=== PATIENT | female | born 1950 | race Caucasian/White ===

== ENCOUNTER 2022-04-17 14:40 | Inpatient (IN) | payer MEDICARE ==
[~2022-04-17 14:40] MED LIST: HEPARIN SOD,PORK IN 0.45% NACL 25,000 UNIT in 0.45% NACL 1 250ML.BAG IV SCH; HEPARIN SODIUM 1,000 UN/ML (10ML VL) IV ONE; HEPARIN SODIUM 1,000 UN/ML (10ML VL) IV PRN
[2022-04-17] MEDS ORDERED: DILTIAZEM 125 MG/25 ML VIAL IV ONE (16:35)
[2022-04-17] MEDS ORDERED: HEPARIN SOD,PORK IN 0.45% NACL PMX 25,000 UNIT/500 ML BAG IV ONE (16:35)
[2022-04-17] MEDS ORDERED: HEPARIN SODIUM 1,000 UN/ML (10ML VL) ONE (16:35)
[2022-04-17] MEDS ORDERED: DILTIAZEM DRIP BOLUS FROM BAG 1 MG SOLN IV ONE (16:35)
[2022-04-17] MEDS ORDERED: SODIUM CHLORIDE 0.9% 100 ML BAG IV ONE (16:35)
[2022-04-17 21:29] LABS: Basophils % (A) 0 %; Eosinophils # (A) 0.1 k/uL (0-0.7); Eosinophils % (A) 1 %; HCT 40.1 % (34.0-46.0); HGB 13.2 gm/dL (11.4-16.0); Lymphocytes # (A) 1.7 k/uL (1.0-4.8); Lymphocytes % (A) 17 %; MCH 30.3 pg (25.0-35.0); MCHC 32.9 g/dL (31.0-37.0); MCV 91.9 fL (80.0-100.0); Mean Platelet Volume 7.7; Monocytes # (A) 0.6 k/uL (0-1.0); Monocytes % (A) 6 %; Neutrophils # (A) 7.3 k/uL (1.3-7.7); Neutrophils % (A) 74 %; Platelet Count 243 k/uL (150-450); RBC 4.36 m/uL (3.80-5.40); WBC 9.8 k/uL (3.8-10.6)
[2022-04-17 21:34] LABS: Partial Thromboplastin Time 22.4 sec (22.0-30.0); Prothrombin Time 11.1 sec (9.0-12.0)
[2022-04-17 21:49] LABS: Albumin 4.1 g/dL (3.5-5.0); Calcium 9.3 mg/dL (8.4-10.2); Potassium 4.5 mmol/L (3.5-5.1); Total Bilirubin 1.4 mg/dL (0.2-1.3); Total Protein 7.4 g/dL (6.3-8.2)
[2022-04-18] MEDS ORDERED: DOCUSATE 100 MG CAP PO PRN (00:25)
[2022-04-18] MEDS ORDERED: ACETAMINOPHEN TAB 325 MG TAB PO PRN (00:25)
[2022-04-18] MEDS ORDERED: ALPRAZolam 0.25 MG TAB PO PRN (00:25)
[2022-04-18] MEDS ORDERED: CALCIUM CARBONATE 500 MG CHEWABLE PO PRN (00:25)
[2022-04-18] MEDS ORDERED: NALOXONE 0.4 MG/ML 1 ML VIAL IV PRN (00:25)
[2022-04-18] MEDS ORDERED: MELATONIN 3 MG TABLET PO PRN (00:25)
[2022-04-18] MEDS ORDERED: ONDANSETRON 4 MG/2 ML VIAL IVP PRN (00:25)
--- NOTE | 2022-04-18 00:39 | P.HPIM ---
History of Present Illness H&P Date: 04/17/22 Chief Complaint: palpitation , exhausted 71 year old female with hypothyroid , hypertension , obesity she is coming in today due to worsening fatigue, SOB and dizziness, she has been experiencing palpitation for months now , she reports no cardiac history and had a left heart cath done few years ago that was reported to be normal she does experience episodes of palpitations, weakness, and SOB with activity. which has been getting worse over the past few days. she denies any CP, nausea or vomiting, denies any recent travel or hspital stay ,denies any history of blood clots. she drinks one cup of coffee in the morning , but she admits to being under a lot of stress due to life in general and sick . she also has been dealing with depressed mood , and feeling exhausted all the time. workup in the ED showed afib with RVR. , she was started on cardizem drip and heparin drip , admitted for cardio eval Review of Systems Pertinent positives as noted in HPI. All other systems were reviewed and are negative Past Medical History Past Medical History: Hypertension, Osteoarthritis (OA), Pneumonia, Renal Disease, Sleep Apnea/CPAP/BIPAP Additional Past Medical History / Comment(s): RENAL ISSUSES A CHILD History of Any Multi-Drug Resistant Organisms: None Reported Past Surgical History: Heart Catheterization Past Anesthesia/Blood Transfusion Reactions: No Reported Reaction Past Psychological History: Panic Disorder Additional Psychological History / Comment(s): HAVE NOT HAD ONE IN AWHILE Smoking Status: Former smoker - Past Family History Mother Family Medical History: AICD/Pacemaker, Dementia Additional Family Medical History / Comment(s): MOTHER STILL ALIVE Father Additional Family Medical History / Comment(s): WITH HEART ATTACK Medications and Allergies Home Medications Medication Instructions Recorded Confirmed Type Aspirin EC [Ecotrin Low Dose] 81 mg PO HS 04/17/22 04/17/22 History Levothyroxine Sodium [Synthroid] 75 mcg PO DAILY 04/17/22 04/17/22 History Spironolactone [Aldactone] 25 mg PO DAILY 04/17/22 04/17/22 History carvediloL 12.5 mg PO BID 04/17/22 04/17/22 History Allergies Allergy/AdvReac Type Severity Reaction Status Date / Time No Known Allergies Allergy Verified 04/17/22 22:10 Physical Exam Vitals: Vital Signs Temp Pulse Resp BP Pulse Ox 04/17/22 20:12 98.1 F 163 H 18 103/86 95 Intake and Output 04/17/22 04/17/22 04/18/22 14:59 22:59 06:59 Other: Weight 136 kg Constitutional: No acute distress, conversant, pleasant Eyes: Anicteric sclerae, moist conjunctiva, Pupils equal round reactive to light ENMT: NC/AT Oropharynx clear, no erythema, or exudates Neck: Supple, no masses, or JVD No carotid bruits No thyromegaly Lungs: Clear to auscultation Clear to percussion Normal respiratory effort, no accessory muscle use Cardiovascular: Heart irregular in rate and rhythm, No murmurs, gallops, or rubs No peripheral edema Abdominal: Soft Nontender, no guarding, rebound or rigidity Abdomen moving with respiration Normoactive bowel sounds No hepatomegaly, No splenomegaly No palpable mass No abdominal wall hernia noted Skin: Normal temperature, tone, texture, turgor No induration No subcutaneous nodules No rash, lesions No ulcers Extremities: No digital cyanosis No clubbing Pedal pulses intact and symmetrical Radial pulses intact and symmetrical No calf tenderness Psychiatric: Alert and oriented to person, place and time Appropriate affect fair judgement Neuro Muscles Strength 5/5 in all 4 extremities Sensation to light touch grossly present throughout Cranial nerves II-XII grossly intact No focal sensory deficits Lymphatics: no palpable cervical or supraclavicular , or inguinal lymph nodes Results CBC & Chem 7: 04/17/22 15:37 04/17/22 15:37 Labs: Abnormal Lab Results - Last 24 Hours (Table) 04/17/22 Range/Units 15:37 Sodium 136 L (137-145) mmol/L Carbon Dioxide 20 L (22-30) mmol/L BUN 18 H (7-17) mg/dL Glucose 103 H (74-99) mg/dL Total Bilirubin 1.4 H (0.2-1.3) mg/dL Thrombosis Risk Factor Assmnt - Choose All That Apply Each Factor Represents 1 point: Age 41-60 years Thrombosis Risk Factor Assessment Total Risk Factor Score: 1 Thrombosis Risk Factor Assessment Level: Low Risk Assessment and Plan Assessment: 71 year old female with hypothyroid and hypertension presented with worsening palpitations, exhaustion and exertional dyspnea , workup in the ED showed afib with RVR. , she was started on cardizem drip and heparin drip , admitted for cardio eval afib with RVR new onset check echo cardiogram check TSH check electrolytes trend trops cardiology consult cardizem bolus and drip heparin drip equipment monitor phototypesetting monitor vital signs hypertension resume spironolactone and coreg hypothyroid resume levothyroxin full code DVT PPX on heparin drip for afib
[2022-04-18] MEDS: DILTIAZEM 125 MG in SODIUM CHLORIDE 0.9% 100 ML IV SCH ×2 (03:01→11:32)
[2022-04-18] MEDS: LEVOTHYROXINE 75 MCG TAB PO SCH (07:29)
[2022-04-18 09:58] LABS: Basophils % (A) 0 %; Eosinophils # (A) 0.1 k/uL (0-0.7); Eosinophils % (A) 1 %; HCT 40.3 % (34.0-46.0); HGB 13.1 gm/dL (11.4-16.0); Hypochromasia Slight; Lymphocytes # (A) 1.5 k/uL (1.0-4.8); Lymphocytes % (A) 18 %; MCH 30.5 pg (25.0-35.0); MCHC 32.5 g/dL (31.0-37.0); Monocytes # (A) 0.4 k/uL (0-1.0); Monocytes % (A) 5 %; Neutrophils % (A) 74 %; Platelet Count 250 k/uL (150-450); RBC 4.29 m/uL (3.80-5.40); WBC 8.1 k/uL (3.8-10.6)
[2022-04-18 10:23] LABS: INR 1.1 (<1.2); Partial Thromboplastin Time 33.6 sec (22.0-30.0); Prothrombin Time 11.5 sec (9.0-12.0)
--- NOTE | 2022-04-18 11:58 | P.PN ---
Subjective Progress Note Date: 04/18/22 Patient says that she's starting to feel better, heart rates are still between 100-130. Remains on diltiazem drip, heparin drip. Gen: awake, alert HEENT: normocephalic, atraumatic, good hearing acuity, moist mucous membranes Resp: good air exchange, breathing comfortably with no accessory muscle use CVS: good distal perfusion x 4, GI: soft, NTTP, ND : no SPT, no CVAT, biswas catheter not present MSK: no pitting edema, no clubbing Neuro: non-focal, moving all extremities Psych: cooperative, euthymic mood Assessment/plan: Paroxysmal Afib with RVR -Admit to inpatient, telemetry -check echo cardiogram -TSH is normal -trend trops, neg -cardiology consult -cardizem bolus and drip -heparin drip Hypertension -resume spironolactone and coreg Hypothyroid -resume levothyroxine Full code DVT PPX on heparin drip for afib Objective - Vital Signs Vital signs: Vital Signs Temp 97.8 F 04/18/22 00:00 Pulse 128 H 04/18/22 11:28 Resp 18 04/18/22 11:28 BP 101/75 04/18/22 11:28 Pulse Ox 95 04/18/22 11:28 FiO2 Intake & Output 04/17/22 04/18/22 04/18/22 18:59 06:59 18:59 Weight 136 kg Other: Voiding Method Toilet - Labs CBC & Chem 7: 04/18/22 09:01 04/17/22 15:37 Labs: Abnormal Lab Results - Last 24 Hours (Table) 04/17/22 04/18/22 Range/Units 15:37 09:01 APTT 33.6 H (22.0-30.0) sec Sodium 136 L (137-145) mmol/L Carbon Dioxide 20 L (22-30) mmol/L BUN 18 H (7-17) mg/dL Glucose 103 H (74-99) mg/dL Total Bilirubin 1.4 H (0.2-1.3) mg/dL
[2022-04-18] MEDS: SODIUM CHLORIDE 0.9% 1,000 ML IV SCH ×3 (12:18→17:53)
[2022-04-18] MEDS: SPIRONOLACTONE 25 MG TAB PO SCH (12:18)
[2022-04-18] MEDS: carvediloL 12.5 MG TAB PO SCH ×2 (12:18→21:07)
--- NOTE | 2022-04-18 13:15 | CA ---
Transthoracic Echo Report Name: Анна Acuna Age: 71 Gender: F : 1950 Exam Date: 04/18/2022 08:03 Exam Location: [facility] Ht (in): 64 Wt (lb): 299 Ordering Physician: Ayana Sorto MD Attending/Referring Phys: [id number], Macario Brim Stretcher Laine Bill RDCS Procedure CPT: Indications: afib new Cardiac Hx: Technical Quality: Technically difficult study Contrast 1: Lumason Total Dose (mL): 4 Contrast 2: Total Dose (mL): MEASUREMENTS (Male / Female) Normal Values 2D ECHO LV Diastolic Diameter PLAX 4.0 cm 4.2 - 5.9 / 3.9 - 5.3 cm LV Systolic Diameter PLAX 3.2 cm IVS Diastolic Thickness 1.4 cm 0.6 - 1.0 / 0.6 - 0.9 cm LVPW Diastolic Thickness 1.4 cm 0.6 - 1.0 / 0.6 - 0.9 cm LV Relative Wall Thickness 0.7 RV Internal Dim ED PLAX 2.5 cm LA Volume 69.3 cm??? 18 - 58 / 22 - 52 cm??? M-MODE Aortic Root Diameter MM 3.3 cm LA Systolic Diameter MM 3.7 cm LA Ao Ratio MM 1.1 AV Cusp Separation MM 2.0 cm DOPPLER AV Peak Velocity 133.1 cm/s AV Peak Gradient 7.1 mmHg LVOT Peak Velocity 85.5 cm/s LVOT Peak Gradient 2.9 mmHg TR Peak Velocity 298.3 cm/s TR Peak Gradient 35.6 mmHg Right Ventricular Systolic Press 38.5 mmHg FINDINGS Left Ventricle Moderately increased left ventricular wall thickness. Could not estimate EF due to fast HR. Right Ventricle Normal right ventricular size and function. Mild pulmonary hypertension. Right Atrium Mild right atrial dilatation. Left Atrium Moderately increased left atrial volume. Mitral Valve Mild mitral annular calcification. Moderate mitral regurgitation. Aortic Valve No aortic valve stenosis or regurgitation. Tricuspid Valve Moderate tricuspid regurgitation. Pulmonic Valve Trace pulmonic regurgitation. Pericardium No pericardial effusion. Aorta Normal size aortic root and proximal ascending aorta. CONCLUSIONS Technically a poor quality study and also difficult body habitus. Echo contrast was utilized. Ejection fraction is in the 45% range with mild mitral annular calcification moderate mitral regurgitation aortic valve sclerosis. No pericardial effusion. Previewed by: Dr. Karl Green MD (Electronically Signed) Final Date: 18 April 2022 13:14
[2022-04-18] MEDS: APIXABAN 5 MG TAB PO SCH ×2 (15:27→21:07)
--- NOTE | 2022-04-18 20:38 | CONS ---
CONSULTATION CHIEF COMPLAINT: Atrial fibrillation. HISTORY OF PRESENT ILLNESS: Анна is a 71-year-old lady with history of hypertension and hypothyroidism, who presented to hospital complaining of fatigue and tiredness of several months' duration and has been having intermittent episodes of palpitations for the last several weeks. She noticed that her heart rate and blood pressure were elevated, due to which she came to the emergency room and was found to be in atrial fibrillation with rapid ventricular rate, for which Cardiology had been consulted. She is currently on intravenous heparin, Cardizem, and resting comfortably. Heart rate is still poorly controlled. She is on 5 mg of Cardizem, I will increase it to 10; add digoxin; and continue the beta-andree that she is on. The patient's symptomatology is related to new-onset atrial fibrillation. She was seen by a electric sign wirer out of town over 10 years ago and underwent cardiac catheterization and was told she did not have significant obstructive CAD. I had a long conversation with the patient about her condition, short and long- term prognosis and treatment options. The patient's atrial fibrillation seems at least several weeks old. I am going to control her heart rate, adequately anticoagulate her, and cardiovert her at that time. If I am unable to control her heart rate with medical therapy, I might consider ROLAND cardioversion on this admission. We will start her on Eliquis or Xarelto. Continue intravenous Cardizem and beta andree. Once we have a good control of heart rate, we will switch her to oral Cardizem. I will obtain a 2D echo to evaluate her LV function. PAST MEDICAL HISTORY: Significant for hypertension and hypothyroidism. CURRENT MEDICATIONS: Include: 1. Carvedilol 12.5 b.i.d. 2. Aldactone 25 daily. 3. Synthroid. 4. Aspirin. ALLERGIES: There are no known drug allergies. FAMILY HISTORY: Significant for cardiomyopathy and AICD in her mother and congestive heart failure in a sister. SOCIAL HISTORY: Negative for smoking, EtOH abuse or drug abuse. REVIEW OF SYSTEMS: CONSTITUTIONAL: Significant for fatigue and tiredness. CARDIAC: Significant for palpitations. RESPIRATORY: Negative. GI: Negative. GENITOURINARY: Negative. ALLERGY/IMMUNOLOGY: Negative. SKIN: Negative. MUSCULOSKELETAL: Significant for arthritis. PSYCHOSOCIAL: Negative. DERM: Negative. Rest of the system review is not relevant. PHYSICAL EXAMINATION: GENERAL: Comfortable at rest. VITAL SIGNS: Heart rate is around 110 to 120 beats per minute, blood pressure is 120/72, respiratory rate is 18, O2 saturation is 95% on room air. NECK: There is no jugular venous distention. Carotid upstroke is normal. There is no bruit. CHEST: Reveals good air entry bilaterally. HEART: Reveals first and second heart sounds. Irregular rhythm. No murmur. ABDOMEN: Soft and nontender. EXTREMITIES: Did not reveal any edema. Peripheral pulses are felt. LABORATORY DATA: Show a hemoglobin of 13.2, platelet count is 243. Troponin is normal. BNP is elevated at 2260 of unclear clinical significance. ASSESSMENT: 1. Persistent atrial fibrillation with poorly controlled ventricular rate. 2. Hypertension. 3. Elevated BNP. PLAN: I will control the heart rate, anticoagulate her, check an echocardiogram, and adjust her therapies. Hopefully, will be discharged home tomorrow. While the BNP is elevated, the patient is not in congestive heart failure. MMODL / IJN: [id number] /
[2022-04-18] MEDS: ASPIRIN 81 MG PO SCH (21:07)
[2022-04-19] MEDS: DILTIAZEM 125 MG in SODIUM CHLORIDE 0.9% 100 ML IV SCH ×2 (00:27→15:00)
[2022-04-19] MEDS: LEVOTHYROXINE 75 MCG TAB PO SCH (06:46)
[2022-04-19 07:23] LABS: Basophils % (A) 0 %; Eosinophils # (A) 0.1 k/uL (0-0.7); Eosinophils % (A) 2 %; HCT 34.6 % (34.0-46.0); HGB 11.2 gm/dL (11.4-16.0); Hypochromasia Slight; Lymphocytes # (A) 1.3 k/uL (1.0-4.8); Lymphocytes % (A) 22 %; MCH 30.6 pg (25.0-35.0); MCHC 32.3 g/dL (31.0-37.0); MCV 94.7 fL (80.0-100.0); Mean Platelet Volume 7.4; Monocytes # (A) 0.3 k/uL (0-1.0); Monocytes % (A) 6 %; Neutrophils # (A) 4.1 k/uL (1.3-7.7); Neutrophils % (A) 69 %; Platelet Count 204 k/uL (150-450); RBC 3.65 m/uL (3.80-5.40); RDW 15.1 % (11.5-15.5); WBC 5.9 k/uL (3.8-10.6)
[2022-04-19 07:47] LABS: INR 1.1 (<1.2)
[2022-04-19 07:48] LABS: Prothrombin Time 11.6 sec (9.0-12.0)
[2022-04-19 07:49] LABS: Albumin 3.5 g/dL (3.5-5.0); Calcium 8.5 mg/dL (8.4-10.2); Magnesium 1.9 mg/dL (1.6-2.3); Potassium 3.7 mmol/L (3.5-5.1); Total Bilirubin 1.4 mg/dL (0.2-1.3); Total Protein 6.4 g/dL (6.3-8.2)
[2022-04-19] MEDS: SODIUM CHLORIDE 0.9% 1,000 ML IV SCH ×2 (08:57→16:32)
[2022-04-19] MEDS: DIGOXIN 250 MCG TAB PO SCH (09:04)
[2022-04-19] MEDS: SPIRONOLACTONE 25 MG TAB PO SCH (09:14)
[2022-04-19] MEDS: APIXABAN 5 MG TAB PO SCH ×2 (09:14→21:08)
[2022-04-19] MEDS: carvediloL 12.5 MG TAB PO SCH ×2 (09:14→21:07)
--- NOTE | 2022-04-19 11:25 | P.PN ---
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 Patient is admitted to the hospital secondary to new onset atrial fibrillation with RVR. Patient examined this morning at the bedside. Patient remains in atrial fibrillation with a very low heart rate between 80 and 120. Patient is on a Cardizem drip at 10 mg an hour. She denies any chest pain or pressure. She denies palpitations. She reports shortness of breath with ambulation. Echocardiogram completed revealing ejection fraction 45%. PHYSICAL EXAM: VITAL SIGNS: Reviewed. GENERAL: Well-developed in no acute distress. NECK: Supple. No JVD or thyromegaly LUNGS: Respirations even and unlabored. Lungs essentially clear to auscultation bilaterally. HEART: Irregular rate and rhythm. S1 and S2 heard. EXTREMITIES: Normal range of motion. No clubbing or cyanosis. Peripheral pulses intact. No lower extremity edema ASSESSMENT: New-onset persistent atrial fibrillation with RVR Hypertension Morbid obesity PLAN: Continue anticoagulation with Eliquis Continue current dose of carvedilol and Digoxin Decreased Cardizem drip to 5 mg an hour Add amiodarone 400 mg twice a day Nothing by mouth at midnight for POSSIBLE cardioversion tomorrow if patients rates are not controlled Continue telemetry monitoring Further recommendations pending patient's course Nurse practitioner note has been reviewed by physician. Signing provider agrees with the documented findings, assessment, and plan of care. Objective - Vital Signs Vital signs: Vital Signs Temp 97.6 F 04/19/22 08:59 Pulse 105 H 04/19/22 08:59 Resp 16 04/19/22 08:59 BP 116/84 04/19/22 08:59 Pulse Ox 99 04/19/22 08:59 FiO2 Intake & Output 04/18/22 04/19/22 04/19/22 18:59 06:59 18:59 Intake Total 118 125 204.5 Balance 118 125 204.5 Weight 136.9 kg Intake: Intake, IV Titration 125 86.5 Amount Diltiazem 125 mg In 125 86.5 Sodium Chloride 0.9% 100 ml @ 10 MG/HR 10 mls/hr IV .[id number] [facility] Rx#: [id number] Oral 118 118 Other: Voiding Method Toilet Toilet # Voids 0 1 - Labs CBC & Chem 7: 04/19/22 06:32 04/19/22 06:32 Labs: Abnormal Lab Results - Last 24 Hours (Table) 04/19/22 04/19/22 Range/Units 06:32 06:32 RBC 3.65 L (3.80-5.40) m/uL Hgb 11.2 L (11.4-16.0) gm/dL Glucose 111 H (74-99) mg/dL Total Bilirubin 1.4 H (0.2-1.3) mg/dL AST 37 H (14-36) U/L
--- NOTE | 2022-04-19 12:21 | P.PN ---
Subjective Progress Note Date: 04/19/22 Patient says that she's starting to feel better, heart rates are still between 100-130. Remains on diltiazem drip. Started on oral dilt, but still requiring small amount of IV gtt to keep HRs controlled. Gen: awake, alert HEENT: normocephalic, atraumatic, good hearing acuity, moist mucous membranes Resp: good air exchange, breathing comfortably with no accessory muscle use CVS: good distal perfusion x 4, GI: soft, NTTP, ND : no SPT, no CVAT, biswas catheter not present MSK: no pitting edema, no clubbing Neuro: non-focal, moving all extremities Psych: cooperative, euthymic mood Assessment/plan: Paroxysmal Afib with RVR -Admit to inpatient, telemetry -check echo cardiogram -TSH is normal -trend trops, neg -cardiology consult -cardizem bolus and drip -heparin drip --> eliquis -started on PO dilt Hypertension -resume spironolactone and coreg Hypothyroid -resume levothyroxine Full code DVT PPX on heparin drip for afib Objective - Vital Signs Vital signs: Vital Signs Temp 97.6 F 04/19/22 11:51 Pulse 132 H 04/19/22 11:51 Resp 17 04/19/22 11:51 BP 101/78 04/19/22 11:51 Pulse Ox 99 04/19/22 08:59 FiO2 Intake & Output 04/18/22 04/19/22 04/19/22 18:59 06:59 18:59 Intake Total 118 125 204.5 Balance 118 125 204.5 Weight 136.9 kg Intake: Intake, IV Titration 125 86.5 Amount Diltiazem 125 mg In 125 86.5 Sodium Chloride 0.9% 100 ml @ 10 MG/HR 10 mls/hr IV .[id number] [facility] Rx#: [id number] Oral 118 118 Other: Voiding Method Toilet Toilet # Voids 0 1 - Labs CBC & Chem 7: 04/19/22 06:32 04/19/22 06:32 Labs: Abnormal Lab Results - Last 24 Hours (Table) 04/19/22 04/19/22 Range/Units 06:32 06:32 RBC 3.65 L (3.80-5.40) m/uL Hgb 11.2 L (11.4-16.0) gm/dL Glucose 111 H (74-99) mg/dL Total Bilirubin 1.4 H (0.2-1.3) mg/dL AST 37 H (14-36) U/L
[2022-04-19] MEDS: AMIODARONE 200 MG TAB PO SCH ×2 (16:28→21:07)
[2022-04-19] MEDS: ASPIRIN 81 MG PO SCH (21:08)
--- NOTE | 2022-04-19 22:06 | XR ---
EXAMINATION TYPE: XR chest 2V DATE OF EXAM: 04/17/2022 COMPARISON: NONE HISTORY: Atrial fibrillation TECHNIQUE: Frontal and lateral views of the chest are obtained. FINDINGS: There is no focal air space opacity, pleural effusion, or pneumothorax seen. The cardiac silhouette size is within normal limits. There are overlying leads. Patient is rotated. The osseous structures are intact. IMPRESSION: No acute cardiopulmonary process.
[2022-04-20] MEDS: SODIUM CHLORIDE 0.9% 1,000 ML IV SCH ×3 (05:58→15:22)
[2022-04-20] MEDS: SPIRONOLACTONE 25 MG TAB PO SCH (09:31)
[2022-04-20] MEDS: APIXABAN 5 MG TAB PO SCH ×2 (09:31→20:33)
[2022-04-20] MEDS: LEVOTHYROXINE 75 MCG TAB PO SCH (09:31)
[2022-04-20] MEDS: DIGOXIN 250 MCG TAB PO SCH (09:31)
[2022-04-20] MEDS: carvediloL 12.5 MG TAB PO SCH ×2 (09:31→20:33)
[2022-04-20] MEDS: AMIODARONE 200 MG TAB PO SCH ×2 (09:31→20:33)
--- NOTE | 2022-04-20 11:51 | P.PN ---
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 Patient is admitted to the hospital secondary to new onset atrial fibrillation with RVR. Patient examined this morning at the bedside. Patient remains in atrial fibrillation with a heart rate between 80 and 120. Patient is on a Cardizem drip at 10 mg an hour. She denies any chest pain or pressure. She denies palpitations. She reports shortness of breath with ambulation. Echocardiogram completed revealing ejection fraction 45%. 04/20/2022 Patient examined this morning. She is sitting up in the chair. Patient denies chest pain or pressure. She reports mild shortness of breath with exertion. She denies any palpitations. Telemetry reveals atrial fibrillation with RVR. She remains on IV Cardizem. PHYSICAL EXAM: VITAL SIGNS: Reviewed. GENERAL: Well-developed in no acute distress. NECK: Supple. No JVD or thyromegaly LUNGS: Respirations even and unlabored. Lungs essentially clear to auscultation bilaterally. HEART: Irregular rate and rhythm. S1 and S2 heard. EXTREMITIES: Normal range of motion. No clubbing or cyanosis. Peripheral pulses intact. No lower extremity edema ASSESSMENT: New-onset persistent atrial fibrillation with RVR Hypertension Morbid obesity PLAN: Continue anticoagulation with Eliquis Continue current dose of carvedilol, digoxin, and amiodarone Continue telemetry monitoring Patient to undergo ROLAND/CV today with Dr. Casas Further recommendations pending patient's course Nurse practitioner note has been reviewed by physician. Signing provider agrees with the documented findings, assessment, and plan of care. Objective - Vital Signs Vital signs: Vital Signs Temp 97.4 F L 04/20/22 09:00 Pulse 115 H 04/20/22 09:00 Resp 20 04/20/22 09:00 BP 143/72 04/20/22 09:00 Pulse Ox 97 04/20/22 09:00 FiO2 Intake & Output 04/19/22 04/20/22 04/20/22 18:59 06:59 18:59 Intake Total 1090.0 140 10 Output Total 600 600 Balance 490.0 -460 10 Intake: IV 20 20 10 Invasive Line 2 20 20 10 Intake, IV Titration 116.0 Amount Diltiazem 125 mg In 116.0 Sodium Chloride 0.9% 100 ml @ 5 MG/HR 5 mls/hr IV .Q24H [facility] Rx#:[id number] Oral 954 120 Output: Urine 600 600 Other: Voiding Method Toilet # Voids 1 1 1 # Bowel Movements 1 - Labs CBC & Chem 7: 04/19/22 06:32 04/19/22 06:32
[2022-04-20] MEDS ORDERED: LIDOCAINE 2% INJ 20 MG/ML (2 ML VIAL) ONE (12:25)
[2022-04-20] MEDS ORDERED: PROPOFOL 10 MG/ML 20 ML VIAL IV ONE (12:25)
[2022-04-20] MEDS ORDERED: IV FLUID CONTINUATION 1,000 ML IV ONE ×2 (12:41)
--- NOTE | 2022-04-20 14:31 | P.PN ---
Subjective Progress Note Date: 04/20/22 Pt still requiring dilt gtt today despite addition of amiodarone and digoxin. Pt will be cardioverted tomorrow. Gen: awake, alert HEENT: normocephalic, atraumatic, good hearing acuity, moist mucous membranes Resp: good air exchange, breathing comfortably with no accessory muscle use CVS: good distal perfusion x 4, GI: soft, NTTP, ND : no SPT, no CVAT, biswas catheter not present MSK: no pitting edema, no clubbing Neuro: non-focal, moving all extremities Psych: cooperative, euthymic mood Assessment/plan: Paroxysmal Afib with RVR -Admit to inpatient, telemetry -check echo cardiogram -TSH is normal -trend trops, neg -cardiology consult -cardizem bolus and drip -heparin drip --> eliquis -started on PO dilt Hypertension -resume spironolactone and coreg Hypothyroid -resume levothyroxine Full code DVT PPX on heparin drip for afib Objective - Vital Signs Vital signs: Vital Signs Temp 97.0 F L 04/20/22 12:52 Pulse 51 L 04/20/22 13:22 Resp 16 04/20/22 13:22 BP 120/80 04/20/22 13:22 Pulse Ox 98 04/20/22 13:22 FiO2 Intake & Output 04/19/22 04/20/22 04/20/22 18:59 06:59 18:59 Intake Total 1090.0 140 411.25 Output Total 600 600 Balance 490.0 -460 411.25 Intake: IV 20 20 310 Invasive Line 2 20 20 10 Intake, IV Titration 116.0 101.25 Amount Diltiazem 125 mg In 116.0 101.25 Sodium Chloride 0.9% 100 ml @ 5 MG/HR 5 mls/hr IV .Q24H [facility] Rx#:[id number] Oral 954 120 Output: Urine 600 600 Other: Voiding Method Toilet # Voids 1 1 1 # Bowel Movements 1 - Labs CBC & Chem 7: 04/19/22 06:32 04/19/22 06:32
[2022-04-20] MEDS: ASPIRIN 81 MG PO SCH (20:34)
--- NOTE | 2022-04-21 05:55 | ECHOT ---
TRANSESOPHAGEAL ECHOCARDIOGRAM INDICATION: Atrial fibrillation, rule out intracardiac thrombus prior to cardioversion. PROCEDURE NOTE: After obtaining informed consent, transesophageal echocardiogram is performed in left lateral position using an Omniplane probe. Local and IV sedation were obtained by the sailor. The patient tolerated the procedure well without any obvious immediate complications. 2D color Doppler and spectral analysis had been performed. FINDINGS: 1. There is no intracardiac thrombus within the left atrial appendage, left atrium, right atrium, right ventricle. 2. Left ventricle has normal size and systolic function. 3. Left atrium appears mildly enlarged. 4. Interatrial septum, there is no evidence of [id number] shunt by color-flow Doppler or nwyck-pr-uppc shunt by agitated saline contrast study. 5. Aortic valve is a 3-leaflet valve. There is no evidence of aortic stenosis or regurgitation. 6. Mitral valve appears anatomically normal. There is nveokvbu-[id number]-[id number] central mitral regurgitation noted. Aorta appears normal. CONCLUSIONS: No intracardiac thrombus. Normal LV systolic function. Ccof-np-grlloboo left atrial enlargement, [id number] mitral regurgitation. PLAN: The patient will undergo cardioversion. MMODL / IJN: [id number] /
[2022-04-21] MEDS: LEVOTHYROXINE 75 MCG TAB PO SCH (06:07)
[2022-04-21] MEDS: SPIRONOLACTONE 25 MG TAB PO SCH (09:17)
[2022-04-21] MEDS: AMIODARONE 200 MG TAB PO SCH (09:17)
[2022-04-21] MEDS: APIXABAN 5 MG TAB PO SCH (09:17)
[2022-04-21] MEDS: carvediloL 12.5 MG TAB PO SCH (09:17)
[2022-04-21 09:53] VITALS: BP 135/67; PULSE 57; RESP 19; TEMP 97.9
--- NOTE | 2022-04-21 16:30 | P.DS ---
Providers Date of admission: 04/17/22 18:30 Expected date of discharge: 04/21/22 Attending physician: Irma Bush MD Consults: 04/18/22 00:28 Consult Physician Routine Consulting Provider: William Prieto Consult Reason/Comments: afib rvr Do you want consulting provider notified?: Yes, Notify in am Primary care physician: Bessy [facility] Course: Paroxysmal Afib with RVR Hypertension Hypothyroid 71-year-old woman with history of hypertension, hypothyroidism was admitted with palpitations, flushing. Patient was found to be in atrial fibrillation with RVR was started on diltiazem drip as well as heparin drip. Cardiology was consulted. Patient was started on digoxin, then subsequent amiodarone. Despite these 2 medications in addition to her home Coreg, patient still could not have her heart rates under control. Patient was therefore scheduled for ROLAND with cardioversion on 9 PM, which was successful in returning her to normal sinus rhythm. Patient was of swelling discharged home the following day after remaining in sinus rhythm off of the difficulty is drip with new medications for amiodarone. She was requested to follow-up with cardiology in 1-2 weeks regarding an echo that found that she had a slightly reduced ejection fraction of 45%. I spent 32 minutes coordinating this complex discharge, discharge date 04/21 Gen: awake, alert HEENT: normocephalic, atraumatic, good hearing acuity, moist mucous membranes Resp: good air exchange, breathing comfortably with no accessory muscle use CVS: good distal perfusion x 4, GI: soft, NTTP, ND : no SPT, no CVAT, biswas catheter not present MSK: no pitting edema, no clubbing Neuro: non-focal, moving all extremities Psych: cooperative, euthymic mood Patient Condition at Discharge: Good Plan - Discharge Summary Discharge Rx Participant: No New Discharge Prescriptions: New Apixaban [Eliquis] 5 mg PO BID #60 tab Amiodarone [Cordarone] 400 mg PO BID #180 tab Continue Spironolactone [Aldactone] 25 mg PO DAILY Levothyroxine Sodium [Synthroid] 75 mcg PO DAILY carvediloL 12.5 mg PO BID Aspirin EC [Ecotrin Low Dose] 81 mg PO HS Discharge Medication List Aspirin EC [Ecotrin Low Dose] 81 mg PO HS 04/17/22 [History] Levothyroxine Sodium [Synthroid] 75 mcg PO DAILY 04/17/22 [History] Spironolactone [Aldactone] 25 mg PO DAILY 04/17/22 [History] carvediloL 12.5 mg PO BID 04/17/22 [History] Apixaban [Eliquis] 5 mg PO BID #60 tab 04/18/22 [Rx] Amiodarone [Cordarone] 400 mg PO BID #180 tab 04/20/22 [Rx] Follow up Appointment(s)/Referral(s): Bessy Chowdhury MD [Primary Care Provider] - 1 Week Goyo Casas MD [STAFF PHYSICIAN] - 1 Week Patient Instructions/Handouts: A-fib (Atrial Fibrillation) (ED), Safe Use of Anticoagulants (DC) Activity/Diet/Wound Care/Special Instructions: Eliquis covered - copay $40.50 Discharge Disposition: HOME SELF-CARE
--- NOTE | 2022-04-23 08:40 | PCN ---
PROCEDURE NOTE STUDY PERFORMED: Cardioversion. FINDINGS: After making sure that the patient does not have any intracardiac thrombus with a transesophageal echo, the patient is adequately anticoagulated and is on amiodarone. She was electrically cardioverted with 150 joules of synchronized DC current and she converted to sinus rhythm following a single shock. She will be sent home on amiodarone and an anticoagulant. JW / DANYAN: [id number] /
== END 2022-04-21 11:40 | disposition home or self-care (01) | DRG 309 ==
LOC: EC 14:40 → UNDOADMIN 18:30 → 3SCARD 18:30
PROVIDERS: ADMIT Internal Medicine; ATTEND Internal Medicine
PROC: B246ZZ4 Ultrasonography of Right and Left Heart, Transesophageal (ICD-10-PCS; principal; 2022-04-20 13:05)
PROC: 5A2204Z Restoration of Cardiac Rhythm, Single (ICD-10-PCS; principal; 2022-04-20 13:05)
DX: I48.19 Other persistent atrial fibrillation (principal); Z68.43 Body mass index [BMI] 50.0-59.9, adult; E66.01 Morbid (severe) obesity due to excess calories; I10 Essential (primary) hypertension; E03.9 Hypothyroidism, unspecified; F32.A Depression, unspecified; G47.30 Sleep apnea, unspecified; M19.90 Unspecified osteoarthritis, unspecified site; N28.9 Disorder of kidney and ureter, unspecified; R79.89 Other specified abnormal findings of blood chemistry; Z79.82 Long term (current) use of aspirin; Z79.890 Hormone replacement therapy; Z79.899 Other long term (current) drug therapy; Z87.891 Personal history of nicotine dependence; Z82.49 Family history of ischemic heart disease and other diseases of the circulatory system
CPT/HCPCS: 71046; 80053; 82272; 83735; 83880; 84443; 84484; 85025; 85610; 85730; 92960; 93306; 93312; 93320; 93325; 96365; 96366; 99291

== ENCOUNTER → 2023-03-06 | Outpatient (CLI) | payer MEDICARE ==
--- NOTE | 2023-03-09 09:48 | MR ---
EXAMINATION TYPE: MR knee LT wo con DATE OF EXAM: 03/06/2023 COMPARISON: None HISTORY: Left knee pain TECHNIQUE: Multiplanar, multisequence imaging of the left knee is performed without IV contrast. The exam is limited by the patient's body habitus. FINDINGS: The osseous structures are intact and there is no bone contusion or fracture.. There is a small joint effusion in the small to moderate Crawford's cyst. There is horizontal tear of the posterior body of the medial meniscus. The lateral meniscus is intact . The cruciate and collateral ligaments are intact. There is mild osteoarthritic change of the medial and lateral compartments of the knee with mild thin ten of the articular cartilage and mild marginal hypertrophic spurring. There is no evidence of dege nerative change of the patellofemoral compartment in the patellar cartilage is of normal thickness an d is intact. IMPRESSION: 1. Tear of the medial meniscus as described above. 2. No ligamentous injury. 3 small joint effusion and small Crawford's cyst. 4. Mild osteoarthritic change of the medial lateral compartments.
== END | disposition home or self-care (01) ==
LOC: RADMRIMAIN 19:06
PROVIDERS: ATTEND Orthopaedic Surgery
DX: M17.12 Unilateral primary osteoarthritis, left knee (principal); S83.242A Other tear of medial meniscus, current injury, left knee, initial encounter; X58.XXXA Exposure to other specified factors, initial encounter

== ENCOUNTER → 2023-03-15 | Outpatient (CLI) | payer MEDICARE ==
[2023-03-15 21:07] LABS: Anion Gap 11.3 mmol/L (4.00-12.00); Carbon Dioxide 27.7 mmol/L (21.6-31.8); Potassium 4.5 mmol/L (3.5-5.5)
[2023-03-15 21:12] LABS: Basophils # (A) 0.03 X 10*3/uL (0.00-0.10); Basophils % (A) 0.4 %; Eosinophils # (A) 0.18 X 10*3/uL (0.04-0.35); Eosinophils % (A) 2.4 %; HCT 39.2 % (37.2-46.3); Lymphocytes # (A) 1.77 X 10*3/uL (0.90-5.00); Lymphocytes % (A) 23.9 %; MCH 31.1 pg (27.0-32.0); MCHC 33.2 d/dL (32.0-37.0); MCV 93.8 FL (80.0-97.0); Mean Platelet Volume 10.5 FL (9.5-12.2); Monocytes # (A) 0.69 X 10*3/uL (0.20-1.00); Monocytes % (A) 9.3 %; NRBC Per 100 WBC 0 X 10*3/uL (0.00-0.01); Neutrophils # (A) 4.73 X 10*3/uL (1.80-7.70); Neutrophils % (A) 63.7 %; Platelet Count 201 X 10*3/uL (140-440); RBC 4.18 X 10*6/uL (4.10-5.20); RDW 13.6 % (11.5-14.5); WBC 7.42 X 10*3/uL (4.50-10.00)
== END | disposition home or self-care (01) ==
LOC: LABWHC1 15:52
PROVIDERS: ATTEND Orthopaedic Surgery
DX: Z01.812 Encounter for preprocedural laboratory examination (principal); M23.92 Unspecified internal derangement of left knee
CPT/HCPCS: 36415; 80051; 85025

== ENCOUNTER 2023-04-04 10:37 | Day surgery (SDC) | payer MEDICARE ==
[2023-03-27 14:43] VITALS: BMI 51.5
--- NOTE | 2023-04-03 14:17 | HP ---
HISTORY AND PHYSICAL DATE OF SCHEDULED SURGERY: 04/04/2023. HISTORY OF PRESENT ILLNESS: Анна Acuna is a 72-year-old patient seen with progressive left knee pain. We discussed options for treatment. She elected to proceed with left knee arthroscopy. Consent was obtained. Cardiac clearance was provided by Dr. Casas. PAST MEDICAL HISTORY: Cardiovascular disease, hypertension, hypothyroidism. PAST SURGICAL HISTORY: Cataract surgery, laparoscopy. DAILY MEDICATIONS: 1. Aspirin. 2. Carvedilol. 3. Levothyroxine. 4. Spironolactone. ALLERGIES: None. SOCIAL HISTORY: She denies tobacco use. PHYSICAL EVALUATION OF LEFT KNEE: Range of motion is 0 to 110 degrees. Mild effusion. Tenderness to medial joint line. Positive medial Woodrow's. Medial crepitus. Ligaments stable. Hip rotation without pain. Distal neurovascular exam intact. RADIOGRAPHS: Radiographs of the left knee revealed moderate medial compartment osteoarthritis. MRI left knee revealed a medial meniscal tear. IMPRESSION: 1. Internal derangement of left knee medial meniscal tear. 2. Hypertension. 3. Hypothyroidism. 4. Cardiovascular disease. PLAN: Left knee arthroscopy with partial medial meniscectomy and debridement. MMODL / IJN: [id number] /
[~2023-04-04 10:37] MED LIST changes: -HEPARIN SOD,PORK IN 0.45% NACL 25,000 UNIT in 0.45% NACL 1 250ML.BAG IV SCH; -HEPARIN SODIUM 1,000 UN/ML (10ML VL) IV ONE; -HEPARIN SODIUM 1,000 UN/ML (10ML VL) IV PRN; +ceFAZolin 3 GM in SODIUM CHLORIDE 0.9% 100 ML IVPB PRN
[2023-04-04] MEDS ORDERED: LIDOCAINE 1% (10MG/ML) FOR IV START INTRADERMA PRN (10:48)
[2023-04-04] MEDS ORDERED: LACTATED RINGERS 1,000 ML IV SCH (10:48)
[2023-04-04] MEDS ORDERED: ONDANSETRON 4 MG/2 ML VIAL IVP ONE (10:48)
[2023-04-04] MEDS ORDERED: MIDAZOLAM 2 MG/2 ML VIAL IV PRN (10:48)
[2023-04-04] MEDS ORDERED: DEXAMETHASONE SOD PHOSPHATE 4 MG/ML 1 ML VIAL IV ONE (10:48)
[2023-04-04] MEDS ORDERED: HYDROmorphone 0.5 MG/0.5 ML SYRINGE IVP PRN (10:48)
[2023-04-04 11:36] VITALS: TEMP 97.7
[2023-04-04] MEDS ORDERED: MIDAZOLAM 2 MG/2 ML VIAL ONE (12:01)
[2023-04-04] MEDS ORDERED: SUCCINYLCHOLINE CHLORIDE 200 MG/10 ML VIAL IV ONE (12:01)
[2023-04-04] MEDS ORDERED: fentaNYL (PF) 50 MCG/ML 2 ML AMP ONE (12:01)
[2023-04-04] MEDS ORDERED: PROPOFOL 10 MG/ML 20 ML VIAL IV ONE (12:01)
[2023-04-04] MEDS ORDERED: LIDOCAINE 2% INJ 20 MG/ML (2 ML VIAL) ONE (12:01)
[2023-04-04] MEDS ORDERED: CEFOXITIN IV ONE ×2 (12:07)
[2023-04-04] MEDS ORDERED: SODIUM CHLORIDE 0.9% IV ONE ×2 (12:07)
[2023-04-04] MEDS ORDERED: BUPIVACAINE (PF) 0.25% 10 ML VIAL SQ ONE (12:31)
--- NOTE | 2023-04-04 12:59 | P.OP ---
Date of Procedure: 04/04/23 Preoperative Diagnosis: Internal derangement left knee Postoperative Diagnosis: 1. Tear medial and lateral meniscus left knee 2. Reactive synovitis medial, lateral and suprapatellar compartments left knee Procedure(s) Performed: 1. Arthroscopic partial medial and lateral meniscectomy left knee 2. Arthroscopic partial synovectomy medial, lateral and suprapatellar compartments left knee Anesthesia: REICA, local Surgeon: Eliseo Rothman Estimated Blood Loss (ml): 7 Pathology: none sent Condition: stable Disposition: PACU Indications for Procedure: 72-year-old patient seen with progressive left knee pain. After having treatment options discussed, she elected to proceed with arthroscopy. Operative Findings: See description of procedure Description of Procedure: Patient was taken to the operative suite. Patient underwent a general anesthetic by the department of anesthesia. Patient was given preoperative antibiotics. The left lower extremity was placed in a well-padded arthroscopic leg latif. The left leg was prepped and draped in the normal sterile orthopedic fashion. A lateral parapatellar and suprapatellar incision was made. Trochars were inserted. Arthroscopy was initiated. Suprapatellar pouch re vealed diffuse thick reactive synovitis. The patellofemoral joint appeared to articulate congruently. There was grade 1 chondromalacia of the patellofemoral joint with osteochondraltears. The scope was guided into the medial gutter. No loose bodies or plica were identified. The scope was then guided into the medial compartment. A medial parapatellar incision was made. Trocar inserted followed by probe. There was a complex tear involving the anterior horn, mid body and posterior horn medial meniscus. There was thick reactive synovitis anteriorly. There were grade 1 chondromalacia changes of the medial compartment. I performed a partial medial meniscectomy getting down to stable meniscal tissue. I performed a partial synovectomy decompressing the reactive synovitis. The residual meniscus was probed and was found to be stable. There was good decompression of the synovitis. Scope and probe were then guided into the intercondylar notch. Cruciates were identified, probed and found to be stable. The scope and probe were then guided into lateral compartment. There was a complex tear involving the posterior horn of the lateral meniscus. There were grade 1/2 chondromalacia changes lateral compartment without tears. There was thick reactive synovitis anteriorly. I performed a partial lateral meniscectomy getting down to stable meniscal tissue. I performed a partial synovectomy decompressing reactive synovitis. The residual meniscus was stable. There was good decompression of the synovitis. The scope was in guided back into the suprapatellar compartment. I introduced the motorized shaver into the suprapatellar compartment. I debrided some piecemeal fragments of meniscus that I encountered. I performed a partial synovectomy. The shaver was removed. The re was good decompression of the synovitis. I now took one more look around the entire knee, no residual debris. Instruments were now removed from the joint. The joint was infiltrated with .25% Marcaine. Steri-Strips were applied to the portal sites. Sterile dressings were applied. The patient was placed into a VIPIN hose. No tourniquet was utilized. The patient was awakened, transferred to a bed and taken to recovery stable satisfactory condition.
[2023-04-04] MEDS ORDERED: HYDROcodone/APAP 5-325MG 1 EACH TAB ONE (14:07)
[2023-04-04 14:09] VITALS: RESP 20
[2023-04-04 14:12] VITALS: PULSE 62
[2023-04-04 14:51] VITALS: BP 143/78
== END 2023-04-04 15:07 | disposition home or self-care (01) ==
LOC: OR 10:37
PROVIDERS: ATTEND Orthopaedic Surgery
DX: S83.282A Other tear of lateral meniscus, current injury, left knee, initial encounter (principal); S83.242A Other tear of medial meniscus, current injury, left knee, initial encounter; X58.XXXA Exposure to other specified factors, initial encounter; I10 Essential (primary) hypertension; E03.9 Hypothyroidism, unspecified; I25.10 Atherosclerotic heart disease of native coronary artery without angina pectoris; Z98.890 Other specified postprocedural states; Z79.82 Long term (current) use of aspirin; Z98.891 History of uterine scar from previous surgery; Z79.899 Other long term (current) drug therapy
CPT/HCPCS: 29880; J2250; J0330; J1100; J2405; J0694; J3010; J2704; J2001; J0665

== ENCOUNTER → 2023-10-10 | Outpatient (CLI) | payer MEDICARE ==
[2023-10-10 18:18] LABS: HCT 36.9 % (37.2-46.3); HGB 11.7 g/dL (12.0-15.0); MCH 29.5 pg (27.0-32.0); MCHC 31.7 g/dL (32.0-37.0); MCV 92.9 FL (80.0-97.0); Mean Platelet Volume 9.9 FL (9.5-12.2); NRBC Per 100 WBC 0 X 10*3/uL (0.00-0.01); Platelet Count 238 X 10*3/uL (140-440); RBC 3.97 X 10*6/uL (4.10-5.20); RDW 14.3 % (11.5-14.5); WBC 9.29 X 10*3/uL (4.50-10.00)
[2023-10-10 19:01] LABS: Blood Urea Nitrogen 15.8 mg/dL (9.0-27.0); Calcium 9.2 mg/dL (8.7-10.3); Carbon Dioxide 23.2 mmol/L (21.6-31.8); Chloride 101 mmol/L (96-109); Glucose 94 mg/dL (70-110); NT-Pro-B-Type Natriuretic Pept 239 pg/mL (0-125); Potassium 4.3 mmol/L (3.5-5.5); Sodium 137 mmol/L (135-145)
== END | disposition home or self-care (01) ==
LOC: LABWHC1 15:20
PROVIDERS: ATTEND Internal Medicine Cardiovascular Disease
DX: R06.02 Shortness of breath (principal)
CPT/HCPCS: 36415; 80048; 83880; 85027

== ENCOUNTER 2023-11-14 07:46 | Day surgery (SDC) | payer MEDICARE ==
[2023-11-14 08:17] VITALS: TEMP 98.1
[2023-11-14] MEDS: SODIUM CHLORIDE 0.9% 500 ML 500 ML IV ONE (08:19)
[2023-11-14] MEDS ORDERED: fentaNYL (PF) 50 MCG/ML 2 ML AMP ONE (08:51)
[2023-11-14] MEDS: BENZOCAINE SPRAY 1 CAN TOPICAL ONE ×2 (09:02→09:22)
[2023-11-14] MEDS: MIDAZOLAM 2 MG/2 ML VIAL IVP ONE (09:22)
[2023-11-14] MEDS: fentaNYL (PF) 50 MCG/ML 2 ML AMP IVP ONE (09:23)
[2023-11-14 09:39] VITALS: RESP 14
[2023-11-14] MEDS ORDERED: SODIUM CHLORIDE 0.9% 1,000 ML IV SCH (09:45)
--- NOTE | 2023-11-14 10:05 | ECHOT ---
TRANSESOPHAGEAL ECHOCARDIOGRAM INDICATION: Mitral regurgitation. PROCEDURE NOTE: After obtaining informed consent, transesophageal echocardiogram was performed in left lateral position using an Omniplane probe. Local and IV sedation were obtained with Xylocaine spray, 2 mg of Versed and 25 mcg of fentanyl. The patient tolerated the procedure well without any obvious immediate complications. Total sedation time was 10 minutes. FINDINGS: 1. Mitral valve appears anatomically normal. There is moderate central mitral regurgitation noted. Left atrium appears mildly enlarged. Right atrium and right ventricle are within normal limits. 2. Left ventricle has normal size and systolic function. Ascending aorta measures within normal limits. Interatrial septum appears aneurysmally dilated. There is no evidence of ifiz-tj-mtrpe shunt by color-flow Doppler or prpny-ez-khiq shunt by agitated saline contrast study. Tricuspid valve shows mild tricuspid regurgitation. Aortic valve is free of stenosis or regurgitation. CONCLUSIONS: Normal LV systolic function, moderate central mitral regurgitation involving normal mitral valve. PLAN: The patient's shortness of breath is not explained by the mitral regurgitation. We are going to work on weight loss, exercise, and optimal control of her blood pressure. MMODL / IJN: [id number] /
[2023-11-14 11:00] VITALS: BP 134/62; PULSE 54
--- NOTE | 2023-11-15 08:27 | LTR ---
Dear Bessy: I performed transesophageal echo on Анна Acuna. Detailed report is enclosed for your records. In brief, the transesophageal echocardiogram revealed moderate central mitral regurgitation, which I do not believe explains the patient's shortness of breath. Her management is going to be in the form of weight loss, exercise and diet, and optimal control of blood pressure at this time. Thank you for giving me the privilege of participating in the care of this pleasant lady. MMZEINAB / BAN: [id number] /
== END 2023-11-14 10:41 | disposition home or self-care (01) ==
LOC: CATHCVL 07:46
PROVIDERS: ATTEND Internal Medicine Cardiovascular Disease
DX: I08.1 Rheumatic disorders of both mitral and tricuspid valves (principal); I48.0 Paroxysmal atrial fibrillation; Z79.01 Long term (current) use of anticoagulants; Z79.899 Other long term (current) drug therapy
CPT/HCPCS: 93312; 93320; 93325; J2250; J3010

== ENCOUNTER 2023-12-09 03:29 | Inpatient (IN) | payer MEDICARE ==
[2023-12-09 04:03] LABS: Basophils % (A) 0 %; Eosinophils # (A) 0.2 k/uL (0-0.7); Eosinophils % (A) 2 %; HCT 39.1 % (34.0-46.0); HGB 13.7 gm/dL (11.4-16.0); Lymphocytes # (A) 1.5 k/uL (1.0-4.8); Lymphocytes % (A) 20 %; MCH 31.6 pg (25.0-35.0); MCV 90.4 fL (80.0-100.0); Mean Platelet Volume 8.2; Monocytes # (A) 0.5 k/uL (0-1.0); Monocytes % (A) 7 %; Neutrophils # (A) 5.2 k/uL (1.3-7.7); Neutrophils % (A) 69 %; Platelet Count 177 k/uL (150-450); RBC 4.32 m/uL (3.80-5.40); RDW 15.2 % (11.5-15.5); WBC 7.5 k/uL (3.8-10.6)
[2023-12-09 04:19] LABS: ALT 16 U/L (4-34); African American GFR (CKD) >90 (>60 ml/min/1.73 sqM); Anion Gap 9 mmol/L; Blood Urea Nitrogen 11 mg/dL (7-17); Calcium 8.8 mg/dL (8.4-10.2); Carbon Dioxide 19 mmol/L (22-30); Chloride 111 mmol/L (98-107); Glucose 119 mg/dL (74-99); Non-African American GFR(CKD) 79 (>60 ml/min/1.73 sqM); Sodium 139 mmol/L (137-145); Total Bilirubin 1.5 mg/dL (0.2-1.3); Total Protein 8.1 g/dL (6.3-8.2)
[2023-12-09 04:24] LABS: INR 1.1 (<1.2); Partial Thromboplastin Time 24.2 sec (22.0-30.0); Prothrombin Time 11.9 sec (10.0-12.5)
[2023-12-09 04:26] LABS: AST 35 U/L (14-36); Alkaline Phosphatase 66 U/L (38-126); Magnesium 1.9 mg/dL (1.6-2.3); Potassium 4.4 mmol/L (3.5-5.1)
--- NOTE | 2023-12-09 04:49 | ED ---
Arrhythmia/Palpitations HPI - General Chief Complaint: Arrhythmia/Palpitations Stated Complaint: elevated heart rate Time Seen by Provider: 12/09/23 03:57 Source: patient Mode of arrival: wheelchair Limitations: no limitations - History of Present Illness Initial Comments: 73-year-old female with past medical history of A-fib who presents emergency department reporting palpitations. States that they have been intermittent for the past couple of days. Last night they became intense and constant. States that she has been taking her home medications without any missed doses. She has had a cardioversion. She follows with Dr. Casas. She denies any chest pain. Does admit to some lower extremity swelling. Denies any calf pain. No other alleviating, precipitating or modifying factors - Related Data Home Medications Medication Instructions Recorded Confirmed Levothyroxine Sodium [Synthroid] 75 mcg PO DAILY 04/17/22 12/09/23 Appetite Mutlivitamin 2 tab PO DAILY 12/09/23 12/09/23 Previous Rx's Medication Instructions Recorded Apixaban [Eliquis] 5 mg PO BID #60 tab 04/18/22 Amiodarone [Cordarone] 400 mg PO BID #180 tab 12/12/23 Metoprolol Tartrate 25 mg PO BID #180 tab 12/12/23 Spironolactone [Aldactone] 25 mg PO DAILY #90 tab 12/12/23 Allergies Allergy/AdvReac Type Severity Reaction Status Date / Time No Known Allergies Allergy Verified 12/09/23 08:49 Review of Systems ROS Statement: Those systems with pertinent positive or pertinent negative responses have been documented in the HPI. ROS Other: All systems not noted in ROS Statement are negative. Past Medical History Past Medical History: Atrial Fibrillation, Hypertension, Osteoarthritis (OA), Pneumonia, Renal Disease, Sleep Apnea/CPAP/BIPAP Additional Past Medical History / Comment(s): Nephrotic syndrome A CHILD-now resolved, SOB w/exertion, couldn't use CPAP History of Any Multi-Drug Resistant Organisms: None Reported Past Surgical History: Heart Catheterization, Orthopedic Surgery Additional Past Surgical History / Comment(s): laparoscopy, cardioversion, arthroscopy left knee Past Anesthesia/Blood Transfusion Reactions: Postoperative Nausea & Vomiting (PONV) Past Psychological History: Panic Disorder Smoking Status: Former smoker - Past Family History Mother Family Medical History: AICD/Pacemaker, Dementia Father Additional Family Medical History / Comment(s): WITH HEART ATTACK General Exam Limitations: no limitations General appearance: alert, in no apparent distress Head exam: Present: atraumatic, normocephalic, normal inspection Eye exam: Present: normal appearance, PERRL, EOMI. Absent: scleral icterus, conjunctival injection, periorbital swelling ENT exam: Present: normal exam, mucous membranes moist Neck exam: Present: normal inspection. Absent: tenderness, meningismus, lymphadenopathy Respiratory exam: Present: normal lung sounds bilaterally. Absent: respiratory distress, wheezes, rales, rhonchi, stridor Cardiovascular Exam: Present: tachycardia, irregular rhythm, normal heart sounds. Absent: systolic murmur, diastolic murmur, rubs, gallop, clicks GI/Abdominal exam: Present: soft, normal bowel sounds. Absent: distended, tenderness, guarding, rebound, rigid Extremities exam: Present: normal inspection, full ROM, normal capillary refill. Absent: tenderness, pedal edema, joint swelling, calf tenderness Back exam: Present: normal inspection Neurological exam: Present: alert, oriented X3, CN II-XII intact Psychiatric exam: Present: normal affect, normal mood Skin exam: Present: warm, dry, intact, normal color. Absent: rash Course Vital Signs 12/09/23 12/09/23 12/09/23 03:31 05:55 06:43 Temperature 97.9 F Pulse Rate 128 H 115 H 134 H Pulse Rate [ Pulse Oximetery ] Respiratory 18 19 18 Rate Blood Pressure 165/112 105/67 106/86 Blood Pressure [Right Arm] O2 Sat by Pulse 95 94 L 95 Oximetry 12/09/23 12/09/23 12/09/23 12:20 15:54 20:00 Temperature 98.2 F Pulse Rate 118 H 108 H 133 H Pulse Rate [ Pulse Oximetery ] Respiratory 18 18 20 Rate Blood Pressure 97/68 116/84 108/85 Blood Pressure [Right Arm] O2 Sat by Pulse 94 L 94 L 95 Oximetry 12/09/23 12/10/23 12/10/23 23:00 02:30 04:00 Temperature 97.9 F 97.9 F Pulse Rate 129 H 131 H 120 H Pulse Rate [ Pulse Oximetery ] Respiratory 20 20 20 Rate Blood Pressure 129/85 114/86 96/61 Blood Pressure [Right Arm] O2 Sat by Pulse 95 94 L 95 Oximetry 12/10/23 12/10/23 12/10/23 08:00 12:00 15:43 Temperature 98.2 F 97.8 F Pulse Rate Pulse Rate [ 118 H 118 H 120 H Pulse Oximetery ] Respiratory 20 18 18 Rate Blood Pressure Blood Pressure 123/98 110/67 156/99 [Right Arm] O2 Sat by Pulse 96 93 L 94 L Oximetry Medical Decision Making - Medical Decision Making Was pt. sent in by a medical professional or institution (, PA, MAIL HANDLERS SUPERVISOR, urgent care, hospital, or intermediate...) When possible be specific @ -No Did you speak to anyone other than the patient for history (EMS, parent, family, police, friend...)? What history was obtained from this source @ -No Did you review nursing and triage notes (agree or disagree)? Why? @ -I reviewed and agree with nursing and triage notes Were old charts reviewed (outside hosp., previous admission, EMS record, old EKG, old radiological studies, urgent care reports/EKG's, intermediate records)? Report findings @ -No old charts were reviewed Differential Diagnosis (chest pain, altered mental status, abdominal pain women, abdominal pain men, vaginal bleeding, weakness, fever, dyspnea, syncope, headache, dizziness, GI bleed, back pain, seizure, CVA, palpatations, mental health, musculoskeletal)? @ -Differential Palpitations Ventricular arrhythmias, atrial arrhythmias, myocardial infarction, anemia, thyrotoxicosis, electrolyte imbalance, hypokalemia, pulmonary embolism, pulmonary disease, drugs, alcohol, anxiety, stress.... This is not meant to be an all-inclusive list. EKG interpreted by me (3pts min.). @ -Yes and demonstrates A-fib with a rate of 115. QRS 79. QTc of 355. No acute ST segment elevations or depressions X-rays interpreted by me (1pt min.). @ -Yes and demonstrates possible pulmonary edema CT interpreted by me (1pt min.). @ -None done U/S interpreted by me (1pt. min.). @ -None done What testing was considered but not performed or refused? (CT, X-rays, U/S, labs)? Why? @ -None What meds were considered but not given or refused? Why? @ -None Did you discuss the management of the patient with other professionals (professionals i.e. , PA, MAIL HANDLERS SUPERVISOR, lab, RT, psych nurse, social work case manager, exchange operator, teacher, sales officer, case worker)? Give summary @ -Spoke with Dr. Arguello who will admit the patient Was smoking cessation discussed for >3mins.? @ -No Was critical care preformed (if so, how long)? @ -Yes, 35 minutes for management of A-fib Were there social determinants of health that impacted care today? How? ( Homelessness, low income, unemployed, alcoholism, drug addiction, transportation, low edu. Level, literacy, decrease access to med. care, penitentiary, rehab)? @ -No Was there de-escalation of care discussed even if they declined (Discuss DNR or withdrawal of care, Hospice)? DNR status @ -No What co-morbidities impacted this encounter? (DM, HTN, Smoking, COPD, CAD, Cancer, CVA, ARF, Chemo, Hep., AIDS, mental health diagnosis, sleep apnea, morbid obesity)? @ -Atrial fibrillation Was patient admitted / discharged? Hospital course, mention meds given and route, prescriptions, significant lab abnormalities, going to OR and other pertinent info. @ -Upon arrival patient was seen and evaluated in room 16. Thorough history and physical exam was performed. Patient does arrive and is in A-fib with RVR. Laboratory studies are conducted. Chest x-ray was performed. I do place the patient on a Cardizem drip. Recommended admission for which patient was agreeable. Patient awaiting a bed on the floor in stable condition Undiagnosed new problem with uncertain prognosis? @ -No Drug Therapy requiring intensive monitoring for toxicity (Heparin, Nitro, Insulin, Cardizem)? @ -Cardizem Were any procedures done? @ -No Diagnosis/symptom? @ -A-fib with RVR Acute, or Chronic, or Acute on Chronic? @ -Acute Uncomplicated (without systemic symptoms) or Complicated (systemic symptoms)? @ -Complicated Side effects of treatment? @ -No Exacerbation, Progression, or Severe Exacerbation? @ -No Poses a threat to life or bodily function? How? (Chest pain, [place], [place], pneumonia, PE, COPD, DKA, ARF, appy, cholecystitis, CVA, Diverticulitis, Homicidal, Suicidal, threat to staff... and all critical care pts) @ -Yes as patient does have elevated heart rate - Lab Data Result diagrams: 12/10/23 09:16 12/10/23 09:16 Lab Results 12/09/23 12/09/23 12/09/23 Range/Units 03:45 03:45 03:45 WBC 7.5 (3.8-10.6) k/uL RBC 4.32 (3.80-5.40) m/uL Hgb 13.7 (11.4-16.0) gm/dL Hct 39.1 (34.0-46.0) % MCV 90.4 (80.0-100.0) fL MCH 31.6 (25.0-35.0) pg MCHC 35.0 (31.0-37.0) g/dL RDW 15.2 (11.5-15.5) % Plt Count 177 (150-450) k/uL MPV 8.2 Neutrophils % 69 % Lymphocytes % 20 % Monocytes % 7 % Eosinophils % 2 % Basophils % 0 % Neutrophils # 5.2 (1.3-7.7) k/uL Lymphocytes # 1.5 (1.0-4.8) k/uL Monocytes # 0.5 (0-1.0) k/uL Eosinophils # 0.2 (0-0.7) k/uL Basophils # 0.0 (0-0.2) k/uL PT 11.9 (10.0-12.5) sec INR 1.1 (<1.2) APTT 24.2 (22.0-30.0) sec Sodium 139 (137-145) mmol/L Potassium 4.4 (3.5-5.1) mmol/L Chloride 111 H (98-107) mmol/L Carbon Dioxide 19 L (22-30) mmol/L Anion Gap 9 mmol/L BUN 11 (7-17) mg/dL Creatinine 0.76 (0.52-1.04) mg/dL Est GFR (CKD-EPI)AfAm >90 (>60 ml/min/1.73 sqM) Est GFR (CKD-EPI)NonAf 79 (>60 ml/min/1.73 sqM) Glucose 119 H (74-99) mg/dL Calcium 8.8 (8.4-10.2) mg/dL Magnesium 1.9 (1.6-2.3) mg/dL Total Bilirubin 1.5 H (0.2-1.3) mg/dL AST 35 (14-36) U/L ALT 16 (4-34) U/L Alkaline Phosphatase 66 (38-126) U/L Troponin I (0.000-0.034) ng/mL NT-Pro-B Natriuret Pep pg/mL Total Protein 8.1 (6.3-8.2) g/dL Albumin 4.0 (3.5-5.0) g/dL TSH (0.465-4.680) mIU/L 12/09/23 12/09/23 12/09/23 Range/Units 03:45 03:45 03:45 WBC (3.8-10.6) k/uL RBC (3.80-5.40) m/uL Hgb (11.4-16.0) gm/dL Hct (34.0-46.0) % MCV (80.0-100.0) fL MCH (25.0-35.0) pg MCHC (31.0-37.0) g/dL RDW (11.5-15.5) % Plt Count (150-450) k/uL MPV Neutrophils % % Lymphocytes % % Monocytes % % Eosinophils % % Basophils % % Neutrophils # (1.3-7.7) k/uL Lymphocytes # (1.0-4.8) k/uL Monocytes # (0-1.0) k/uL Eosinophils # (0-0.7) k/uL Basophils # (0-0.2) k/uL PT (10.0-12.5) sec INR (<1.2) APTT (22.0-30.0) sec Sodium (137-145) mmol/L Potassium (3.5-5.1) mmol/L Chloride (98-107) mmol/L Carbon Dioxide (22-30) mmol/L Anion Gap mmol/L BUN (7-17) mg/dL Creatinine (0.52-1.04) mg/dL Est GFR (CKD-EPI)AfAm (>60 ml/min/1.73 sqM) Est GFR (CKD-EPI)NonAf (>60 ml/min/1.73 sqM) Glucose (74-99) mg/dL Calcium (8.4-10.2) mg/dL Magnesium (1.6-2.3) mg/dL Total Bilirubin (0.2-1.3) mg/dL AST (14-36) U/L ALT (4-34) U/L Alkaline Phosphatase (38-126) U/L Troponin I <0.012 (0.000-0.034) ng/mL NT-Pro-B Natriuret Pep 423 pg/mL Total Protein (6.3-8.2) g/dL Albumin (3.5-5.0) g/dL TSH 1.990 (0.465-4.680) mIU/L 12/09/23 12/09/23 Range/Units 08:20 11:05 WBC (3.8-10.6) k/uL RBC (3.80-5.40) m/uL Hgb (11.4-16.0) gm/dL Hct (34.0-46.0) % MCV (80.0-100.0) fL MCH (25.0-35.0) pg MCHC (31.0-37.0) g/dL RDW (11.5-15.5) % Plt Count (150-450) k/uL MPV Neutrophils % % Lymphocytes % % Monocytes % % Eosinophils % % Basophils % % Neutrophils # (1.3-7.7) k/uL Lymphocytes # (1.0-4.8) k/uL Monocytes # (0-1.0) k/uL Eosinophils # (0-0.7) k/uL Basophils # (0-0.2) k/uL PT (10.0-12.5) sec INR (<1.2) APTT (22.0-30.0) sec Sodium (137-145) mmol/L Potassium (3.5-5.1) mmol/L Chloride (98-107) mmol/L Carbon Dioxide (22-30) mmol/L Anion Gap mmol/L BUN (7-17) mg/dL Creatinine (0.52-1.04) mg/dL Est GFR (CKD-EPI)AfAm (>60 ml/min/1.73 sqM) Est GFR (CKD-EPI)NonAf (>60 ml/min/1.73 sqM) Glucose (74-99) mg/dL Calcium (8.4-10.2) mg/dL Magnesium (1.6-2.3) mg/dL Total Bilirubin (0.2-1.3) mg/dL AST (14-36) U/L ALT (4-34) U/L Alkaline Phosphatase (38-126) U/L Troponin I <0.012 <0.012 (0.000-0.034) ng/mL NT-Pro-B Natriuret Pep pg/mL Total Protein (6.3-8.2) g/dL Albumin (3.5-5.0) g/dL TSH (0.465-4.680) mIU/L Disposition Clinical Impression: Atrial fibrillation with rapid ventricular response Disposition: ADMITTED IP TO THIS HOSP Condition: Good Is patient prescribed a controlled substance at d/c from ED?: No Time of Disposition: 05:25 Decision to Admit Reason: Admit from EC Decision Date: 12/09/23 Decision Time: 05:25
[2023-12-09] MEDS ORDERED: NALOXONE 0.4 MG/ML 1 ML VIAL IV PRN (05:25)
--- NOTE | 2023-12-09 05:38 | P.CONS ---
History of Present Illness - Reason for Consult Consult date: 12/09/23 - History of Present Illness Patient is a 73-year-old female with a PMH of A-fib on Eliquis and hypothyroidism who presents to the emergency room with complaints of palpitations and chest discomfort. Patient reports that over the past few days she has been experiencing intermittent palpitations that have recently worsened. She checked her heart rate on a home monitor and found that it was as high as 130s which prompted her to come to the emergency room. She also reports mild substernal chest tightness when the palpitations are at their worst. Denied experiencing fever, chills, cough, nausea, vomiting, diaphoresis, or dizziness. EKG in the emergency room revealed A-fib with RVR at 115 bpm as reviewed by me. Laboratory evaluation was remarkable for WBC count 7.5, hemoglobin 13.7, platelet count 177, sodium 139, potassium 4.4, chloride 111, CO2 19, BUN 11, creatinine 0.76, and glucose 119 with total bilirubin 1.5 and troponin less than 0.012. ED documentation reviewed and case discussed with ED provider. Review of systems: Pertinent positives and negatives as discussed in HPI, a complete review of sy stems was performed and all other systems are negative. Physical examination: Vital signs reviewed General: non toxic, no distress, appears at stated age, morbidly obese Derm: no unusual rashes/lesions, warm Head: atraumatic, normocephalic, symmetric Eyes: EOMI, no lid lag, anicteric sclera, pupils equal round reactive to light ENT: Nose and ears atraumatic Neck: No cervical lymphadenopathy, trachea midline, supple Mouth: no lip lesion, mucus membranes moist Cardiovascular: S1S2 reg, tachycardic, no murmur, positive dorsalis pedis pulse bilateral, no edema Lungs: CTA bilateral, no rhonchi, no rales, no accessory muscle use Abdominal: soft, nontender to palpation, no guarding Ext: muscle strength 5 out of 5 in all 4 extremities grossly, no gross muscle atrophy, no contractures, Neuro: CN II-XI grossly intact, no gross focal neuro deficits Psych: Alert, oriented, appropriate affect Assessment: A-fib with RVR Chronic conditions: Hypothyroidism Imaging: EKG in the emergency room revealed A-fib with RVR at 115 bpm as reviewed by me. Data Review: Laboratory evaluation was remarkable for WBC count 7.5, hemoglobin 13.7, platelet count 177, sodium 139, potassium 4.4, chloride 111, CO2 19, BUN 11, creatinine 0.76, and glucose 119 with total bilirubin 1.5 and troponin less than 0.012. Plan: Continue patient on Cardizem infusion Cardiac monitoring Follow-up thyroid studies Cardiology consulted DVT prophylaxis: Eliquis The patient is admitted with an anticipated less than 2 midnight stay for evaluation of A-fib CODE STATUS: Full Code Discussed with: Patient Anticipated discharge place: Home Past Medical History Past Medical History: Atrial Fibrillation, Hypertension, Osteoarthritis (OA), Pneumonia, Renal Disease, Sleep Apnea/CPAP/BIPAP Additional Past Medical History / Comment(s): Nephrotic syndrome A CHILD-now resolved, SOB w/exertion, couldn't use CPAP History of Any Multi-Drug Resistant Organisms: None Reported Past Surgical History: Heart Catheterization, Orthopedic Surgery Additional Past Surgical History / Comment(s): laparoscopy, cardioversion, arthroscopy left knee Past Anesthesia/Blood Transfusion Reactions: Postoperative Nausea & Vomiting (PONV) Past Psychological History: Panic Disorder Smoking Status: Former smoker - Past Family History Mother Family Medical History: AICD/Pacemaker, Dementia Father Additional Family Medical History / Comment(s): WITH HEART ATTACK Medications and Allergies Home Medications Medication Instructions Recorded Confirmed Type Levothyroxine Sodium [Synthroid] 75 mcg PO DAILY 04/17/22 11/14/23 History Spironolactone [Aldactone] 25 mg PO DAILY 04/17/22 11/14/23 History carvediloL 12.5 mg PO BID 04/17/22 11/14/23 History Apixaban [Eliquis] 5 mg PO BID #60 tab 04/18/22 11/14/23 Rx Allergies Allergy/AdvReac Type Severity Reaction Status Date / Time No Known Allergies Allergy Verified 11/14/23 08:06 Physical Exam Vitals: Vital Signs Temp Pulse Resp BP Pulse Ox 12/09/23 03:31 97.9 F 128 H 18 165/112 95 Intake and Output 12/08/23 12/08/23 12/09/23 14:59 22:59 06:59 Other: Weight 133.81 kg Results CBC & Chem 7: 12/09/23 03:45 12/09/23 03:45 Labs: Abnormal Lab Results - Last 24 Hours (Table) 12/09/23 Range/Units 03:45 Chloride 111 H (98-107) mmol/L Carbon Dioxide 19 L (22-30) mmol/L Glucose 119 H (74-99) mg/dL Total Bilirubin 1.5 H (0.2-1.3) mg/dL
--- NOTE | 2023-12-09 05:40 | XR ---
EXAM: XR Chest, 2 Views CLINICAL HISTORY: ITS.REASON XR Reason: dysrhythmia TECHNIQUE: Frontal and lateral views of the chest. COMPARISON: April 17, 2022 IMPRESSION: 1. Patchy foci of airspace disease noted in the lungs. This may be infectious in nature. Sequela of pulmonary edema, amongst other etiologies, also possible 2. Prominent heart size.
[2023-12-09] MEDS: DILTIAZEM DRIP BOLUS FROM BAG 1 MG SOLN IV ONE (05:51)
[2023-12-09] MEDS: DILTIAZEM 125 MG in SODIUM CHLORIDE 0.9% 100 ML IV SCH (05:51)
--- NOTE | 2023-12-09 05:55 | P.HPIM ---
History of Present Illness H&P Date: 12/09/23 Patient is a 73-year-old female with a PMH of A-fib on Eliquis and hypothyroidism who presents to the emergency room with complaints of palpitations and chest discomfort. Patient reports that over the past few days she has been experiencing intermittent palpitations that have recently worsened. She checked her heart rate on a home monitor and found that it was as high as 130s which prompted her to come to the emergency room. She also reports mild substernal chest tightness when the palpitations are at their worst. Denied experiencing fever, chills, cough, nausea, vomiting, diaphoresis, or dizziness. EKG in the emergency room revealed A-fib with RVR at 115 bpm as reviewed by me. Laboratory evaluation was remarkable for WBC count 7.5, hemoglobin 13.7, platelet count 177, sodium 139, potassium 4.4, chloride 111, CO2 19, BUN 11, creatinine 0.76, and glucose 119 with total bilirubin 1.5 and troponin less than 0.012. ED documentation reviewed and case discussed with ED provider. Review of systems: Pertinent positives and negatives as discussed in HPI, a complete review of systems was performed and all other systems are negative. Physical examination: Vital signs reviewed General: non toxic, no distress, appears at stated age, morbidly obese Derm: no unusual rashes/lesions, warm Head: atraumatic, normocephalic, symmetric Eyes: EOMI, no lid lag, anicteric sclera, pupils equal round reactive to light ENT: Nose and ears atraumatic Neck: No cervical lymphadenopathy, trachea midline, supple Mouth: no lip lesion, mucus membranes moist Cardiovascular: S1S2 reg, tachycardic, no murmur, positive dorsalis pedis pulse bilateral, no edema Lungs: CTA bilateral, no rhonchi, no rales, no accessory muscle use Abdominal: soft, nontender to palpation, no guarding Ext: muscle strength 5 out of 5 in all 4 extremities grossly, no gross muscle atrophy, no contractures, Neuro: CN II-XI grossly intact, no gross focal neuro deficits Psych: Alert, oriented, appropriate affect Assessment: A-fib with RVR Chronic conditions: Hypothyroidism Imaging: EKG in the emergency room revealed A-fib with RVR at 115 bpm as reviewed by me. Data Review: Laboratory evaluation was remarkable for WBC count 7.5, hemoglobin 13.7, platelet count 177, sodium 139, potassium 4.4, chloride 111, CO2 19, BUN 11, creatinine 0.76, and glucose 119 with total bilirubin 1.5 and troponin less than 0.012. Plan: Continue patient on Cardizem infusion Cardiac monitoring Follow-up thyroid studies Cardiology consulted DVT prophylaxis: Eliquis The patient is admitted with an anticipated less than 2 midnight stay for evaluation of A-fib CODE STATUS: Full Code Discussed with: Patient Anticipated discharge place: Home Past Medical History Past Medical History: Atrial Fibrillation, Hypertension, Osteoarthritis (OA), Pneumonia, Renal Disease, Sleep Apnea/CPAP/BIPAP Additional Past Medical History / Comment(s): Nephrotic syndrome A CHILD-now resolved, SOB w/exertion, couldn't use CPAP History of Any Multi-Drug Resistant Organisms: None Reported Past Surgical History: Heart Catheterization, Orthopedic Surgery Additional Past Surgical History / Comment(s): laparoscopy, cardioversion, arthroscopy left knee Past Anesthesia/Blood Transfusion Reactions: Postoperative Nausea & Vomiting (PONV) Past Psychological History: Panic Disorder Smoking Status: Former smoker - Past Family History Mother Family Medical History: AICD/Pacemaker, Dementia Father Additional Family Medical History / Comment(s): WITH HEART ATTACK Medications and Allergies Home Medications Medication Instructions Recorded Confirmed Type Levothyroxine Sodium [Synthroid] 75 mcg PO DAILY 04/17/22 11/14/23 History Spironolactone [Aldactone] 25 mg PO DAILY 04/17/22 11/14/23 History carvediloL 12.5 mg PO BID 04/17/22 11/14/23 History Apixaban [Eliquis] 5 mg PO BID #60 tab 04/18/22 11/14/23 Rx Allergies Allergy/AdvReac Type Severity Reaction Status Date / Time No Known Allergies Allergy Verified 11/14/23 08:06 Physical Exam Vitals: Vital Signs Temp Pulse Resp BP Pulse Ox 12/09/23 03:31 97.9 F 128 H 18 165/112 95 Intake and Output 12/08/23 12/08/23 12/09/23 14:59 22:59 06:59 Other: Weight 133.81 kg Results CBC & Chem 7: 12/09/23 03:45 12/09/23 03:45 Labs: Abnormal Lab Results - Last 24 Hours (Table) 04/29/24 Range/Units 03:45 Chloride 111 H (98-107) mmol/L Carbon Dioxide 19 L (22-30) mmol/L Glucose 119 H (74-99) mg/dL Total Bilirubin 1.5 H (0.2-1.3) mg/dL
[2023-12-09] MEDS: APIXABAN 5 MG TAB PO SCH (09:39)
[2023-12-09] MEDS: carvediloL 12.5 MG TAB PO SCH (09:39)
[2023-12-09] MEDS: SPIRONOLACTONE 25 MG TAB PO SCH (09:39)
[2023-12-09] MEDS: DEXTROSE 5% IN WATER 100 ML with AMIODARONE 150 MG IV ONE (09:56)
[2023-12-09] MEDS: AMIODARONE 360 MG in DEXTROSE 5% IN WATER 200 ML IV ONE (10:12)
--- NOTE | 2023-12-09 12:00 | P.CRDCN ---
History of Present Illness History of present illness: HISTORY OF PRESENT ILLNESS: This is a 73-year-old female with a past medical history significant for hypertension, hypothyroidism, atrial fibrillation and mitral regurgitation. Patient [facility] not [facility] but she was recently seen by Dr. Casas during an inpatient hospitalization. We have been asked to see the patient in consultation for A-fib with RVR. Patient examined at the bedside in the emergency room. Patient presented to the hospital with a chief complaint of palpitations. She denied any chest pain or pressure. She reports shortness of breath that has been ongoing recently. She states it is not worse than normal. She was supposed to see a lung doctor but has not yet seen one. She remains in atrial fibrillation at the time of examination with heart rate between [id number]. 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 However there are no further details of that at this time. DIAGNOSTICS: - EKG reveals atrial fibrillation with RVR - Chest xray patchy foci of airspace disease noted in the lungs. This may be infectious in nature. Sequela of pulmonary edema amongst other etiologies also possible. Prominent heart size.. - Laboratory data: WBC 7.5. Hemoglobin 13.7. Platelet count 177. Sodium 139. Potassium 4.4. BUN 11. Creatinine 0.76. Magnesium 1.9. Troponin negative x 2. proBNP 423. TSH 1.990 - Current home cardiac medications include carvedilol 12.5 mg twice a day, Aldactone 25 mg daily, Eliquis 5 mg twice a day. -ROLAND performed on 11/14/2023 revealed mitral valve appears anatomically normal. There is moderate central mitral regurgitation noted. Left atrium appears mildly enlarged. Right atrium and right ventricle are within normal limits. Left ventricle has normal size and systolic function. Ascending aorta measures within normal limits. 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 There is no evidence of left to right shunt by color flow Doppler or right to left shunt by agitated saline contrast study. Tricuspid valve shows mild tricuspid regurgitation. Aortic valve is free of stenosis or regurgitation. - Most recent echocardiogram obtained in 04/2022 reveals moderate tricuspid regurgitation, moderate mitral regurgitation, mild pulmonary hypertension, and inability to estimate EF due to tachycardia. REVIEW OF SYSTEMS: At the time of my exam: CONSTITUTIONAL: Denies fever or chills. HEENT: Denies blurred vision, vision changes, or eye pain. Denies hemoptysis CARDIOVASCULAR: Denies chest pain. Denies orthopnea. Denies PND. Reports palpitations RESPIRATORY: Reports shortness of breath. GASTROINTESTINAL: Denies abdominal pain. Denies nausea or vomiting. HEMATOLOGIC: Denies bleeding disorders. GENITOURINARY: Denies any blood in urine. SKIN: Denies pruitis. Denies rash. PHYSICAL EXAM: VITAL SIGNS: Reviewed. GENERAL: Well-developed in no acute distress. HEENT: Head is normocephalic. Pupils are equal, round. Sclerae anicteric. Mucous membranes of the mouth are moist. Neck supple. No JVD or thyromegaly LUNGS: Respirations even and unlabored. Lungs essentially clear to auscultation bilaterally. HEART: Tachycardic. Irregular rate and rhythm. S1 and S2 heard. Systolic murmur noted ABDOMEN: Soft. Nondistended. Nontender. EXTREMITIES: Normal range of motion. No clubbing or cyanosis. Peripheral pulses intact. No lower extremity edema NEUROLOGIC: Awake and alert. Oriented x 3. ASSESSMENT: Palpitations Paroxysmal atrial fibrillation Moderate central mitral regurgitation, per ROLAND 11/14/2023 Hypertension Hypothyroidism Obstructive sleep apnea PLAN: No need to repeat echocardiogram as patient underwent ROLAND earlier this month Resume home cardiac medications Continue anticoagulation with Eliquis Continue IV Cardizem at 5 mg an hour Add IV amiodarone bolus and drip per protocol Continue telemetry monitoring Further recommendations pending patient course Nurse practitioner note has been reviewed by physician. Signing provider agrees with the documented findings, assessment, and plan of care documented by AD TERMINAL MAKEUP OPERATOR as a scribe. Past Medical History Past Medical History: Atrial Fibrillation, Hypertension, Osteoarthritis (OA), Pneumonia, Renal Disease, Sleep Apnea/CPAP/BIPAP Additional Past Medical History / Comment(s): Nephrotic syndrome A CHILD-now resolved, SOB w/exertion, couldn't use CPAP History of Any Multi-Drug Resistant Organisms: None Reported Past Surgical History: Heart Catheterization, Orthopedic Surgery Additional Past Surgical History / Comment(s): laparoscopy, cardioversion, arthroscopy left knee Past Anesthesia/Blood Transfusion Reactions: Postoperative Nausea & Vomiting (PONV) Past Psychological History: Panic Disorder Smoking Status: Former smoker - Past Family History Mother Family Medical History: AICD/Pacemaker, Dementia Father Additional Family Medical History / Comment(s): WITH HEART ATTACK Medications and Allergies Home Medications Medication Instructions Recorded Confirmed Type Levothyroxine Sodium [Synthroid] 75 mcg PO DAILY 04/17/22 12/09/23 History Spironolactone [Aldactone] 25 mg PO DAILY 04/17/22 12/09/23 History carvediloL 12.5 mg PO BID 04/17/22 12/09/23 History Apixaban [Eliquis] 5 mg PO BID #60 tab 04/18/22 12/09/23 Rx Appetite Mutlivitamin 2 tab PO DAILY 12/09/23 12/09/23 History Allergies Allergy/AdvReac Type Severity Reaction Status Date / Time No Known Allergies Allergy Verified 12/09/23 08:49 Physical Exam Vitals: Vital Signs Temp Pulse Resp BP Pulse Ox 12/09/23 06:43 134 H 18 106/86 95 12/09/23 05:55 115 H 19 105/67 94 L 12/09/23 03:31 97.9 F 128 H 18 165/112 95 Intake and Output 12/08/23 12/09/23 12/09/23 22:59 06:59 14:59 Other: Weight 133.81 kg Results 12/09/23 03:45 12/09/23 03:45 Cardiac Enzymes 12/09/23 12/09/23 Range/Units 03:45 03:45 AST 35 (14-36) U/L Troponin I <0.012 (0.000-0.034) ng/mL Coagulation 12/09/23 Range/Units 03:45 PT 11.9 (10.0-12.5) sec APTT 24.2 (22.0-30.0) sec CBC 12/09/23 Range/Units 03:45 WBC 7.5 (3.8-10.6) k/uL RBC 4.32 (3.80-5.40) m/uL Hgb 13.7 (11.4-16.0) gm/dL Hct 39.1 (34.0-46.0) % Plt Count 177 (150-450) k/uL Comprehensive Metabolic Panel 12/09/23 Range/Units 03:45 Sodium 139 (137-145) mmol/L Potassium 4.4 (3.5-5.1) mmol/L Chloride 111 H (98-107) mmol/L Carbon Dioxide 19 L (22-30) mmol/L BUN 11 (7-17) mg/dL Creatinine 0.76 (0.52-1.04) mg/dL Glucose 119 H (74-99) mg/dL Calcium 8.8 (8.4-10.2) mg/dL AST 35 (14-36) U/L ALT 16 (4-34) U/L Alkaline Phosphatase 66 (38-126) U/L Total Protein 8.1 (6.3-8.2) g/dL Albumin 4.0 (3.5-5.0) g/dL Current Medications Generic Name Dose Route Start Last Admin Trade Name Freq PRN Reason Stop Dose Admin Diltiazem HCl 125 mg/ Sodium 125 mls @ 5 mls/hr 12/09/23 05:15 12/09/23 05:51 Chloride IV 5 mg/hr .Q24H DOREEN 5 mls/hr Administration 5 MG/HR Naloxone HCl 0.2 mg 12/09/23 05:25 Naloxone 0.4 Mg/Ml 1 Ml Vial IV Q2M PRN Opioid Reversal Intake and Output 12/08/23 12/09/23 12/09/23 22:59 06:59 14:59 Other: Weight 133.81 kg 12/09/23 03:45 12/09/23 03:45
[2023-12-09] MEDS: AMIODARONE 450 MG in DEXTROSE 5% IN WATER 250 ML IV SCH (15:50)
--- NOTE | 2023-12-09 17:45 | P.PN ---
Progress Note - Text Progress Note Date: 12/09/23 (delayed charting seen at 1040) Update note to the H&P performed by my partner this morning. Patient seen and examined at bedside. She continues to have a tachycardia. She is concerned about possible side effects of amiodarone. We discussed these details and she is now okay with the medication as ordered by cardiology. Otherwise she is doing well. No additional changes at this time.
[2023-12-09] MEDS: LEVOTHYROXINE 75 MCG TAB PO STA (18:35)
[2023-12-10] MEDS: LEVOTHYROXINE 75 MCG TAB PO SCH (07:47)
[2023-12-10] MEDS: METOPROLOL TARTRATE 50 MG TAB PO SCH (08:53)
[2023-12-10 10:06] LABS: Basophils % (A) 1 %; Eosinophils # (A) 0.2 k/uL (0-0.7); Eosinophils % (A) 2 %; Lymphocytes # (A) 1.5 k/uL (1.0-4.8); Lymphocytes % (A) 22 %; MCH 29.8 pg (25.0-35.0); MCHC 32.4 g/dL (31.0-37.0); MCV 92.1 fL (80.0-100.0); Mean Platelet Volume 8.3; Monocytes # (A) 0.5 k/uL (0-1.0); Monocytes % (A) 8 %; Neutrophils # (A) 4.5 k/uL (1.3-7.7); Neutrophils % (A) 65 %; Platelet Count 181 k/uL (150-450); RBC 4.35 m/uL (3.80-5.40); RDW 15.3 % (11.5-15.5); WBC 6.9 k/uL (3.8-10.6)
--- NOTE | 2023-12-10 10:28 | P.PN ---
Subjective HISTORY OF PRESENT ILLNESS: This is a 73-year-old female with a past medical history significant for hypertension, hypothyroidism, atrial fibrillation and mitral regurgitation. Patient [facility] not [facility] but she was recently seen by Dr. Casas during an inpatient hospitalization. We have been asked to see the patient in consultation for A-fib with RVR. Patient examined at the bedside in the emergency room. Patient presented to the hospital with a chief complaint of palpitations. She denied any chest pain or pressure. She reports shortness of breath that has been ongoing recently. She states it is not worse than normal. She was supposed to see a lung doctor but has not yet seen one. She remains in atrial fibrillation at the time of examination with heart rate between [id number]. 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 However there are no further details of that at this time. DIAGNOSTICS: - EKG reveals atrial fibrillation with RVR - Chest xray patchy foci of airspace disease noted in the lungs. This may be infectious in nature. Sequela of pulmonary edema amongst other etiologies also possible. Prominent heart size.. - Laboratory data: WBC 7.5. Hemoglobin 13.7. Platelet count 177. Sodium 139. Potassium 4.4. BUN 11. Creatinine 0.76. Magnesium 1.9. Troponin negative x 2. proBNP 423. TSH 1.990 - Current home cardiac medications include carvedilol 12.5 mg twice a day, Aldactone 25 mg daily, Eliquis 5 mg twice a day. -ROLAND performed on 11/14/2023 revealed mitral valve appears anatomically normal. There is moderate central mitral regurgitation noted. Left atrium appears mildly enlarged. Right atrium and right ventricle are within normal limits. Left ventricle has normal size and systolic function. Ascending aorta measures within normal limits. 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 There is no evidence of left to right shunt by color flow Doppler or right to left shunt by agitated saline contrast study. Tricuspid valve shows mild tricuspid regurgitation. Aortic valve is free of stenosis or regurgitation. - Most recent echocardiogram obtained in 04/2022 reveals moderate tricuspid regurgitation, moderate mitral regurgitation, mild pulmonary hypertension, and inability to estimate EF due to tachycardia. 12/10/2023 Patient examined this morning in the emergency room. Patient currently denies chest pain or pressure. She denies shortness of breath. She remains in atrial fibrillation with RVR. Heart rate currently in the 130s. IV amiodarone infusion has completed. She remains on IV Cardizem at 5 mg an hour. Most recent blood pressure 123/98. PHYSICAL EXAM: VITAL SIGNS: Reviewed. GENERAL: Well-developed in no acute distress. HEENT: Head is normocephalic. Pupils are equal, round. Sclerae anicteric. Mucous membranes of the mouth are moist. Neck supple. No JVD or thyromegaly LUNGS: Respirations even and unlabored. Lungs essentially clear to auscultation bilaterally. HEART: Tachycardic. Irregular rate and rhythm. S1 and S2 heard. Systolic murmur noted ABDOMEN: Soft. Nondistended. Nontender. EXTREMITIES: Normal range of motion. No clubbing or cyanosis. Peripheral pulses intact. No lower extremity edema NEUROLOGIC: Awake and alert. Oriented x 3. ASSESSMENT: Palpitations Paroxysmal atrial fibrillation with RVR Moderate central mitral regurgitation, per ROLAND 11/14/2023 Hypertension Hypothyroidism Obstructive sleep apnea PLAN: No need to repeat echocardiogram as patient underwent ROLAND earlier this month Continue anticoagulation with Eliquis Continue IV Cardizem at 5 mg an hour IV amiodarone infusion has completed. Begin oral amiodarone 400 mg twice a day Discontinue carvedilol. Begin metoprolol 50 mg twice a day Continue telemetry monitoring NPO at midnight for possible ROLAND/cardioversion tomorrow with Dr. Casas if patient remains in A-fib with RVR Further recommendations pending patient course Nurse practitioner note has been reviewed by physician. Signing provider agrees with the documented findings, assessment, and plan of care documented by FIGURE CLERK as a scribe. Objective - Vital Signs Vital signs: Vital Signs Temp 98.2 F 12/10/23 08:00 Pulse 118 H 12/10/23 08:00 Resp 20 12/10/23 08:00 BP 123/98 12/10/23 08:00 Pulse Ox 96 12/10/23 08:00 FiO2 Intake & Output 12/09/23 12/10/23 12/10/23 18:59 06:59 18:59 Intake Total 340.917 240 Balance 340.917 240 Intake: Intake, IV Titration 340.917 Amount Amiodarone 450 mg In 250 Dextrose 5% in Water 250 ml @ 0.5 MG/MIN 16.667 mls/hr IV .Q15H DOREEN Rx#: [id number] Diltiazem 125 mg In 90.917 Sodium Chloride 0.9% 100 ml @ 5 MG/HR 5 mls/hr IV .Q24H DOREEN Rx#:[id number] Oral 240 Other: # Voids 3 - Labs CBC & Chem 7: 12/10/23 09:16 12/09/23 03:45
[2023-12-10 10:34] LABS: African American GFR (CKD) 77 (>60 ml/min/1.73 sqM); Anion Gap 10 mmol/L; Blood Urea Nitrogen 9 mg/dL (7-17); Calcium 8.9 mg/dL (8.4-10.2); Carbon Dioxide 20 mmol/L (22-30); Chloride 109 mmol/L (98-107); Glucose 128 mg/dL (74-99); Non-African American GFR(CKD) 66 (>60 ml/min/1.73 sqM); Potassium 4.1 mmol/L (3.5-5.1); Sodium 139 mmol/L (137-145)
[2023-12-10] MEDS: AMIODARONE 200 MG TAB PO SCH (11:04)
--- NOTE | 2023-12-10 16:58 | P.PN ---
Subjective Progress Note Date: 12/10/23 (delayed charting seen at 1005) Patient is a 73-year-old female with known atrial fibrillation anticoagulated with Eliquis status post prior cardioversions, hypertension, hypothyroidism, and mitral regurgitation who presented to the hospital with complaints of palpitations and chest pressure. On arrival to the ER she was tachycardic. EKG confirmed atrial fibrillation with rapid ventricular response. Initial laboratory analysis was remarkable for a bilirubin of 1.5. Initial troponins were negative. Patient was started on a Cardizem drip and arrangements were made for observation. Patient continued to be tachycardic. Cardiology was consulted. She was started on an amiodarone drip in addition to the diltiazem drip. They did not recommend repeat echocardiogram as patient had undergone ROLAND on 11/19/2023 which showed normal systolic function. On the morning of 12/09 she continued to have rapid ventricular response and her Coreg was discontinued and she was started on metoprolol 50 mg twice daily. There is consideration for possible cardioversion if patient remains tachycardic. Patient seen and examined at bedside. She continues to have some palpitations. She is very tired as she has been in the ER and has been awake for multiple days. She also feels as though she wants a shower. She is unhappy with having to be in the emergency department. She continues to have shortness of breath. Vital signs reviewed General: Nontoxic, no distress, appears at stated age, obese Cardiovascular: S1-S2 irregular and tachycardic, no murmur Lungs: Decreased breath sounds bilateral, no rhonchi, no rales, no accessory muscle use Abdominal: Soft, nontender to palpation, no guarding Ext: No gross muscle atrophy, no edema b/l lower extremities, no contractures Neuro: CN II-XI grossly intact, no focal neuro deficits Psych: Alert, oriented, appropriate affect Assessment/Plan: Atrial fibrillation with rapid ventricular response Moderate mitral regurgitation Hypertension Hypothyroidism Class III obesity with BMI 50.64 Obstructive sleep apnea -Cardiology note reviewed: Continue with amiodarone but transition to 400 mg oral daily, continue Cardizem drip, start metoprolol -Amiodarone 400 mg twice daily, Lopressor 50 mg twice daily -Eliquis 5 mg twice daily -Spironolactone 25 mg daily -Continue with telemetry -No need to repeat echocardiogram as patient had ROLAND done earlier this month with preserved systolic function Imaging: None new Data Review: Labs reviewed from today include CBC and basic metabolic profile which are essentially unremarkable DVT prophylaxis: Eliquis Anticipated discharge date: Pending clinical course Anticipated discharge place: Home This dictation was prepared using [employer] voice recognition software. Though every attempt is made to correct errors during dictation some may still exist. Objective - Vital Signs Vital signs: Vital Signs Temp 97.8 F 12/10/23 15:43 Pulse 120 H 12/10/23 15:43 Resp 18 12/10/23 15:43 BP 156/99 12/10/23 15:43 Pulse Ox 94 L 12/10/23 15:43 FiO2 Intake & Output 12/09/23 12/10/23 12/10/23 18:59 06:59 18:59 Intake Total 340.917 480 Balance 340.917 480 Intake: Intake, IV Titration 340.917 Amount Amiodarone 450 mg In 250 Dextrose 5% in Water 250 ml @ 0.5 MG/MIN 16.667 mls/hr IV .Q15H [facility] Rx#: [id number] Diltiazem 125 mg In 90.917 Sodium Chloride 0.9% 100 ml @ 5 MG/HR 5 mls/hr IV .Q24H [facility] Rx#:[id number] Oral 480 Other: # Voids 2 - Labs CBC & Chem 7: 12/10/23 09:16 12/10/23 09:16 Labs: Abnormal Lab Results - Last 24 Hours (Table) 12/10/23 Range/Units 09:16 Chloride 109 H (98-107) mmol/L Carbon Dioxide 20 L (22-30) mmol/L Glucose 128 H (74-99) mg/dL
--- NOTE | 2023-12-11 12:52 | P.PN ---
Subjective HISTORY OF PRESENT ILLNESS: This is a 73-year-old female with a past medical history significant for hypertension, hypothyroidism, atrial fibrillation and mitral regurgitation. Patient [facility] not [facility] but she was recently seen by Dr. Casas during an inpatient hospitalization. We have been asked to see the patient in consultation for A-fib with RVR. Patient examined at the bedside in the emergency room. Patient presented to the hospital with a chief complaint of palpitations. She denied any chest pain or pressure. She reports shortness of breath that has been ongoing recently. She states it is not worse than normal. She was supposed to see a lung doctor but has not yet seen one. She remains in atrial fibrillation at the time of examination with heart rate between [id number]. 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 However there are no further details of that at this time. DIAGNOSTICS: - EKG reveals atrial fibrillation with RVR - Chest xray patchy foci of airspace disease noted in the lungs. This may be infectious in nature. Sequela of pulmonary edema amongst other etiologies also possible. Prominent heart size.. - Laboratory data: WBC 7.5. Hemoglobin 13.7. Platelet count 177. Sodium 139. Potassium 4.4. BUN 11. Creatinine 0.76. Magnesium 1.9. Troponin negative x 2. proBNP 423. TSH 1.990 - Current home cardiac medications include carvedilol 12.5 mg twice a day, Aldactone 25 mg daily, Eliquis 5 mg twice a day. -ROLAND performed on 11/14/2023 revealed mitral valve appears anatomically normal. There is moderate central mitral regurgitation noted. Left atrium appears mildly enlarged. Right atrium and right ventricle are within normal limits. Left ventricle has normal size and systolic function. Ascending aorta measures within normal limits. 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 There is no evidence of left to right shunt by color flow Doppler or right to left shunt by agitated saline contrast study. Tricuspid valve shows mild tricuspid regurgitation. Aortic valve is free of stenosis or regurgitation. - Most recent echocardiogram obtained in 04/2022 reveals moderate tricuspid regurgitation, moderate mitral regurgitation, mild pulmonary hypertension, and inability to estimate EF due to tachycardia. 12/10/2023 Patient examined this morning in the emergency room. Patient currently denies chest pain or pressure. She denies shortness of breath. She remains in atrial fibrillation with RVR. Heart rate currently in the 130s. IV amiodarone infusion has completed. She remains on IV Cardizem at 5 mg an hour. Most recent blood pressure 123/98. 12/11/2023 Patient examined this morning at the bedside. Patient denies chest pain or pressure. She denies SOB. Telemetry reveals atrial fibrillation with a heart rate around 120. She remains on IV Cardizem at 5 mg an hour. PHYSICAL EXAM: VITAL SIGNS: Reviewed. GENERAL: Well-developed in no acute distress. HEENT: Head is normocephalic. Pupils are equal, round. Sclerae anicteric. Mucous membranes of the mouth are moist. Neck supple. No JVD or thyromegaly LUNGS: Respirations even and unlabored. Lungs essentially clear to auscultation bilaterally. HEART: Tachycardic. Irregular rate and rhythm. S1 and S2 heard. Systolic murmur noted ABDOMEN: Soft. Nondistended. Nontender. EXTREMITIES: Normal range of motion. No clubbing or cyanosis. Peripheral pulses intact. No lower extremity edema NEUROLOGIC: Awake and alert. Oriented x 3. ASSESSMENT: Palpitations Paroxysmal atrial fibrillation with RVR Moderate central mitral regurgitation, per ROLAND 11/14/2023 Hypertension Hypothyroidism Obstructive sleep apnea PLAN: Continue anticoagulation with Eliquis Continue IV Cardizem at 5 mg an hour Continue oral amiodarone and oral metoprolol Continue telemetry monitoring NPO at midnight ROLAND/CV tomorrow morning at [address] Casas Further recommendations pending patient course Nurse practitioner note has been reviewed by physician. Signing provider agrees with the documented findings, assessment, and plan of care documented by LINER HELPER as a scribe. Objective - Vital Signs Vital signs: Vital Signs Temp 97.5 F L 12/11/23 07:59 Pulse 128 H 12/11/23 07:59 Resp 18 12/11/23 07:59 BP 129/75 12/11/23 07:59 Pulse Ox 97 12/11/23 07:59 FiO2 Intake & Output 12/10/23 12/11/23 12/11/23 18:59 06:59 18:59 Intake Total 1020 118.167 Balance 1020 118.167 Weight 133.81 kg Intake: Intake, IV Titration 118.167 Amount Diltiazem 125 mg In 118.167 Sodium Chloride 0.9% 100 ml @ 5 MG/HR 5 mls/hr IV .Q24H [facility] Rx#:[id number] Oral 1020 Other: Voiding Method Toilet # Voids 1 1 - Labs CBC & Chem 7: 12/10/23 09:16 12/10/23 09:16
--- NOTE | 2023-12-11 16:07 | P.PN ---
Subjective Progress Note Date: 12/11/23 (delayed charting seen at 1005) Patient is a 73-year-old female with known atrial fibrillation anticoagulated with Eliquis status post prior cardioversions, hypertension, hypothyroidism, and mitral regurgitation who presented to the hospital with complaints of palpitations and chest pressure. On arrival to the ER she was tachycardic. EKG confirmed atrial fibrillation with rapid ventricular response. Initial laboratory analysis was remarkable for a bilirubin of 1.5. Initial troponins were negative. Patient was started on a Cardizem drip and arrangements were made for observation. Patient continued to be tachycardic. Cardiology was consulted. She was started on an amiodarone drip in addition to the diltiazem drip. They did not recommend repeat echocardiogram as patient had undergone ROLAND on 11/19/2023 which showed normal systolic function. On the morning of 12/09 she continued to have rapid ventricular response and her Coreg was discontinued and she was started on metoprolol 50 mg twice daily. Plan is for cardioversion on the morning of 12/11 if patient remains tachycardic. Patient seen and examined at bedside. She is feeling better than yesterday as she slept. She is not noticing the palpitations as much, no chest pain. Worried about her teeth loosening if she has another cardioversion. Vital signs reviewed General: Nontoxic, no distress, appears at stated age, obese Cardiovascular: S1-S2 irregular and tachycardic, no murmur Lungs: Decreased breath sounds bilateral, no rhonchi, no rales, no accessory muscle use Abdominal: Soft, nontender to palpation, no guarding Ext: No gross muscle atrophy, no edema b/l lower extremities, no contractures Neuro: CN II-XI grossly intact, no focal neuro deficits Psych: Alert, oriented, appropriate affect Assessment/Plan: Atrial fibrillation with rapid ventricular response Moderate mitral regurgitation Hypertension Hypothyroidism Class III obesity with BMI 50.64 Obstructive sleep apnea -Case discussed with cardiology. Plan will be for ROLAND with cardioversion tomorrow at [address] Casas. -Amiodarone 400 mg twice daily, Lopressor 50 mg twice daily -Cardizem 5 mg IV -Eliquis 5 mg twice daily -Spironolactone 25 mg daily -Continue with telemetry -No need to repeat echocardiogram as patient had ROLAND done earlier this month with preserved systolic function Imaging: None new Data Review: None new DVT prophylaxis: Eliquis Anticipated discharge date: Pending clinical course Anticipated discharge place: Home This dictation was prepared using [employer] voice recognition software. Though every attempt is made to correct errors during dictation some may still exist. Objective - Vital Signs Vital signs: Vital Signs Temp 97.5 F L 12/11/23 07:59 Pulse 128 H 12/11/23 14:00 Resp 18 12/11/23 12:00 BP 125/72 12/11/23 12:00 Pulse Ox 95 12/11/23 12:00 FiO2 Intake & Output 12/10/23 12/11/23 12/11/23 18:59 06:59 18:59 Intake Total 1020 118.167 360 Output Total 400 Balance 1020 118.167 -40 Weight 133.81 kg Intake: Intake, IV Titration 118.167 Amount Diltiazem 125 mg In 118.167 Sodium Chloride 0.9% 100 ml @ 5 MG/HR 5 mls/hr IV .Q24H [facility] Rx#:[id number] Oral 1020 360 Output: Urine 400 Other: Voiding Method Toilet # Voids 1 1 - Labs CBC & Chem 7: 12/10/23 09:16 12/10/23 09:16
[2023-12-12] MEDS ORDERED: PROPOFOL 10 MG/ML 20 ML VIAL IV ONE (07:22)
[2023-12-12] MEDS ORDERED: LIDOCAINE 2% (PF) 20 MG/ML 5 ML VIAL ONE (07:22)
[2023-12-12] MEDS: BENZOCAINE SPRAY 1 CAN TOPICAL ONE (07:23)
[2023-12-12] MEDS: SODIUM CHLORIDE 0.9% 500 ML 500 ML IV ONE (07:28)
--- NOTE | 2023-12-12 08:04 | ECHOT ---
TRANSESOPHAGEAL ECHOCARDIOGRAM STUDY: ROLAND. INDICATIONS: To rule out intracardiac thrombus prior to cardioversion. Indication, persistent atrial fibrillation with poorly controlled ventricular rate. PROCEDURE: Transesophageal echocardiogram was performed in left lateral position using an Omniplane probe. Local and IV sedation were obtained by the marketing/sales person. The patient tolerated the procedure well without any obvious immediate complications. FINDINGS: 1. There is no thrombus within the left atrial appendage, left atrium, right atrium, right ventricle. 2. There is mild mitral regurgitation noted. 3. Mild tricuspid regurgitation noted. Aortic valve is free of stenosis or regurgitation. Interatrial septum appears aneurysmal without any evidence of left- to-right shunt by color-flow Doppler or [id number] shunt by agitated saline contrast study. Aortic root appears normal. CONCLUSIONS: No intracardiac thrombus normal LV systolic function. MMODL / IJN: [id number] /
[2023-12-12 09:23] VITALS: RESP 18; TEMP 97.4
[2023-12-12] MEDS: SODIUM CHLORIDE 0.9% 1,000 ML IV SCH (09:47)
[2023-12-12] MEDS: METOPROLOL TARTRATE 25 MG TAB PO SCH (09:50)
[2023-12-12 10:07] VITALS: BP 136/79; PULSE 51
--- NOTE | 2023-12-12 13:01 | PCN ---
PROCEDURE NOTE STUDY: Cardioversion. FINDINGS: After obtaining informed consent making sure that the patient is adequately anticoagulated and ruling out an intracardiac thrombus with a transesophageal echo, the patient was cardioverted with 150 joules of synchronized DC current. She converted to sinus rhythm following a single shock and will continue the anticoagulant and will hopefully be discharged home later today. JW / BAN: [id number] /
--- NOTE | 2023-12-12 15:37 | P.DS ---
Providers Date of admission: 12/09/23 13:30 Expected date of discharge: 12/12/23 Attending physician: Candelaria Arguello MD Consults: 12/09/23 05:25 Consult Physician Urgent Consulting Provider: [facility] Consult Reason/Comments: afib with rvr Do you want consulting provider notified?: Yes Primary care physician: [facility] Course: Atrial fibrillation with rapid ventricular response Moderate mitral regurgitation Hypertension Hypothyroidism Class III obesity with BMI 50.64 Obstructive sleep apnea Patient is a 73-year-old female with known atrial fibrillation anticoagulated with Eliquis status post prior cardioversions, hypertension, hypothyroidism, and mitral regurgitation who presented to the hospital with complaints of palpitations and chest pressure. On arrival to the ER she was tachycardic. EKG confirmed atrial fibrillation with rapid ventricular response. Initial laboratory analysis was remarkable for a bilirubin of 1.5. Initial troponins were negative. Patient was started on a Cardizem drip and arrangements were made for observation. Patient continued to be tachycardic. Cardiology was consulted. She was started on an amiodarone drip in addition to the diltiazem drip. They did not recommend repeat echocardiogram as patient had undergone ROLAND on 11/19/2023 which showed normal systolic function. On the morning of 12/09 she continued to have rapid ventricular response and her Coreg was discontinued and she was started on metoprolol 50 mg twice daily. Pt did undergo ROLAND to r/o thrombus, and then proceeded to get DCCV successfully. Pt was in stable condition and discharged home with cardiology f/u. I spent 32 minutes coordinating this discharge Gen: In NAD, non-toxic HEENT: normocephalic, atraumatic, hearing acuity is intant, mucous membranes moist CVS: perfusing all extremities well, no pitting edema, Respiratory: symmetric chest expansion, no accessory muscle use, GI: soft, NTTP, ND, : no suprapubic tenderness, no CVA tenderness MSK/Derm: no rashes, cyanosis Neuro: CN II-XII intact, no motor weakness, Psych: cooperative, euthymic mood, judgment and insight is intact Patient Condition at Discharge: Good Plan - Discharge Summary New Discharge Prescriptions: New Spironolactone [Aldactone] 25 mg PO DAILY #90 tab Amiodarone [Cordarone] 400 mg PO BID #180 tab Metoprolol Tartrate 25 mg PO BID #180 tab Continue Levothyroxine Sodium [Synthroid] 75 mcg PO DAILY Apixaban [Eliquis] 5 mg PO BID #60 tab Appetite Mutlivitamin 2 tab PO DAILY Discontinued Spironolactone [Aldactone] 25 mg PO DAILY carvediloL 12.5 mg PO BID Discharge Medication List Levothyroxine Sodium [Synthroid] 75 mcg PO DAILY 04/17/22 [History] Apixaban [Eliquis] 5 mg PO BID #60 tab 04/18/22 [Rx] Appetite Mutlivitamin 2 tab PO DAILY 12/09/23 [History] Amiodarone [Cordarone] 400 mg PO BID #180 tab 12/12/23 [Rx] Metoprolol Tartrate 25 mg PO BID #180 tab 12/12/23 [Rx] Spironolactone [Aldactone] 25 mg PO DAILY #90 tab 12/12/23 [Rx] Follow up Appointment(s)/Referral(s): Janet Cee MD [STAFF PHYSICIAN] - 12/24/23 10:00 am Bessy Chowdhury MD [Primary Care Provider] - 1-2 days (Office will call you with follow up appointment time. ) Patient Instructions/Handouts: A-fib (Atrial Fibrillation) (DC), Cardioversion (DC), Transesophageal Echocardiogram (DC) Discharge Disposition: HOME SELF-CARE
== END 2023-12-12 12:26 | disposition home or self-care (01) | DRG 309 ==
LOC: EC 03:29 → 3SCARD 05:26 → OBSVTOIN 13:30 → 3SCARD 15:45
PROVIDERS: ADMIT Internal Medicine; ATTEND Internal Medicine
PROC: 3E033RZ Introduction of Antiarrhythmic into Peripheral Vein, Percutaneous Approach (ICD-10-PCS; 2023-12-09)
PROC: 5A2204Z Restoration of Cardiac Rhythm, Single (ICD-10-PCS; principal; 2023-12-12 07:30)
PROC: B246ZZ4 Ultrasonography of Right and Left Heart, Transesophageal (ICD-10-PCS; principal; 2023-12-12 07:30)
DX: I48.0 Paroxysmal atrial fibrillation (principal); Z68.43 Body mass index [BMI] 50.0-59.9, adult; E66.01 Morbid (severe) obesity due to excess calories; I34.0 Nonrheumatic mitral (valve) insufficiency; I10 Essential (primary) hypertension; E03.9 Hypothyroidism, unspecified; G47.33 Obstructive sleep apnea (adult) (pediatric); F41.0 Panic disorder [episodic paroxysmal anxiety]; M19.90 Unspecified osteoarthritis, unspecified site; N28.9 Disorder of kidney and ureter, unspecified; Z79.01 Long term (current) use of anticoagulants; Z79.890 Hormone replacement therapy; Z79.899 Other long term (current) drug therapy; Z87.891 Personal history of nicotine dependence
CPT/HCPCS: 36415; 71046; 80048; 80053; 83735; 83880; 84443; 84484; 85025; 85610; 85730; 92960; 93005; 93312; 93320; 93325; 96365; 96366; 96368; 99291

== ENCOUNTER → 2024-06-18 | Outpatient (CLI) | payer MEDICARE | END | disposition home or self-care (01) | LOC: LABWHC1 10:21 | PROVIDERS: ATTEND Internal Medicine Cardiovascular Disease | DX: I48.0 Paroxysmal atrial fibrillation (principal) | CPT/HCPCS: 36415; 84443 ==

== ENCOUNTER 2025-02-05 07:35 | Inpatient (IN) | payer MEDICARE ==
--- NOTE | 2025-02-05 08:02 | ED ---
General Adult HPI - General Chief complaint: Chest Pain Stated complaint: cardiac issue Time Seen by Provider: 02/05/25 07:39 Source: patient, EMS, RN notes reviewed, old records reviewed Mode of arrival: EMS Limitations: no limitations - History of Present Illness Initial comments: 74-year-old female presenting with palpitation, racing heart sensation. History of atrial fibrillation. Patient was transported by paramedics, found to be in A-fib with RVR. Patient denies central chest pain. Denies nausea vomiting. Denies difficulty breathing. She states she was quite dizzy yesterday. This has mostly resolved. - Related Data Home Medications Medication Instructions Recorded Confirmed Levothyroxine Sodium [Synthroid] 75 mcg PO DAILY 04/17/22 12/09/23 Appetite Mutlivitamin 2 tab PO DAILY 12/09/23 12/09/23 Previous Rx's Medication Instructions Recorded Apixaban [Eliquis] 5 mg PO BID #60 tab 04/18/22 Amiodarone [Cordarone] 400 mg PO BID #180 tab 12/12/23 Metoprolol Tartrate 25 mg PO BID #180 tab 12/12/23 Spironolactone [Aldactone] 25 mg PO DAILY #90 tab 12/12/23 Allergies Allergy/AdvReac Type Severity Reaction Status Date / Time No Known Allergies Allergy Verified 12/09/23 08:49 Review of Systems ROS Statement: Those systems with pertinent positive or pertinent negative responses have been documented in the HPI. ROS Other: All systems not noted in ROS Statement are negative. Past Medical History Past Medical History: Atrial Fibrillation, Hypertension, Osteoarthritis (OA), Pneumonia, Renal Disease, Sleep Apnea/CPAP/BIPAP Additional Past Medical History / Comment(s): Nephrotic syndrome A CHILD-now resolved, SOB w/exertion, couldn't use CPAP History of Any Multi-Drug Resistant Organisms: None Reported Past Surgical History: Heart Catheterization, Orthopedic Surgery Additional Past Surgical History / Comment(s): laparoscopy, cardioversion, arthroscopy left knee Past Anesthesia/Blood Transfusion Reactions: Postoperative Nausea & Vomiting (PONV) Past Psychological History: Panic Disorder Smoking Status: Former smoker Past Alcohol Use History: Rare Past Drug Use History: None Reported - Past Family History Mother Family Medical History: AICD/Pacemaker, Dementia Father Additional Family Medical History / Comment(s): WITH HEART ATTACK General Exam Limitations: no limitations General appearance: alert, in no apparent distress Head exam: Present: atraumatic, normocephalic Eye exam: Present: normal appearance, PERRL ENT exam: Present: normal exam Neck exam: Present: normal inspection. Absent: tenderness, meningismus Respiratory exam: Present: normal lung sounds bilaterally. Absent: respiratory distress, wheezes Cardiovascular Exam: Present: tachycardia, irregular rhythm GI/Abdominal exam: Present: soft. Absent: distended, tenderness Extremities exam: Present: normal inspection, normal capillary refill. Absent: pedal edema Neurological exam: Present: alert, oriented X3, CN II-XII intact. Absent: motor sensory deficit Psychiatric exam: Present: normal affect, normal mood Skin exam: Present: warm, dry, intact Course Vital Signs 02/05/25 02/05/25 07:39 08:46 Temperature 98.3 F 98.1 F Pulse Rate 94 138 H Respiratory 20 18 Rate Blood Pressure 138/99 129/82 O2 Sat by Pulse 95 95 Oximetry Medical Decision Making - Medical Decision Making Was pt. sent in by a medical professional or institution (Dr. PA, DRY GOODS INSPECTOR, urgent care, hospital, or long-term...) When possible be specific @ -No Did you speak to anyone other than the patient for history (EMS, parent, family, police, friend...)? What history was obtained from this source @ -No Did you review nursing and triage notes (agree or disagree)? Why? @ -I reviewed and agree with nursing and triage notes Were old charts reviewed (outside hosp., previous admission, EMS record, old EKG, old radiological studies, urgent care reports/EKG's, long-term records)? Report findings @ -No old charts were reviewed Differential Palpitations Ventricular arrhythmias, atrial arrhythmias, myocardial infarction, anemia, thyrotoxicosis, electrolyte imbalance, hypokalemia, pulmonary embolism, pulmonary disease, drugs, alcohol, anxiety, stress.... This is not meant to be an all-inclusive list. EKG interpreted by me (3pts min.). @ -Atrial fibrillation with RVR rate of 114, QRS duration 90, QTc [address] segment elevation. X-rays interpreted by me (1pt min.). @ -[Chest x-ray negative for acute cardiopulmonary findings CT interpreted by me (1pt min.). @ -None done U/S interpreted by me (1pt. min.). @ -None done What testing was considered but not performed or refused? (CT, X-rays, U/S, labs)? Why? @ -None What meds were considered but not given or refused? Why? @ -None Did you discuss the management of the patient with other professionals (professionals i.e. , PA, DRY GOODS INSPECTOR, lab, RT, psych nurse, social security specialist, surfacer, teacher, credit control officer, case monitor)? Give summary @ -Dr. Ahmadi, will admit Was smoking cessation discussed for >3mins.? @ -No Was critical care preformed (if so, how long)? @ -Yes 35 minutes Were there social determinants of health that impacted care today? How? (Homelessness, low income, unemployed, alcoholism, drug addiction, transportation, low edu. Level, literacy, decrease access to med. care, half-way, rehab)? @ -No Was there de-escalation of care discussed even if they declined (Discuss DNR or withdrawal of care, Hospice)? DNR status @ -No What co-morbidities impacted this encounter? (DM, HTN, Smoking, COPD, CAD, Cancer, CVA, ARF, Chemo, Hep., AIDS, mental health diagnosis, sleep apnea, morbid obesity)? @ -[Atrial fibrillation Was patient admitted / discharged? Hospital course, mention meds given and route, prescriptions, significant lab abnormalities, going to OR and other pertinent info. @ -74-year-old female with palpitations. Patient found to be in atrial fibrillation with RVR. IV established, patient monitored, she has a sustained heart rate averaging approximately 130-140. Patient placed on Cardizem drip. She has normal CBC, normal CMP, negative troponin. She is admitted to internal medicine with cardiology on consult Undiagnosed new problem with uncertain prognosis? @ -No Drug Therapy requiring intensive monitoring for toxicity (Heparin, Nitro, Insulin, Cardizem)? @ -No Were any procedures done? @ -No Diagnosis/symptom? @ -[A-fib with RVR Acute, or Chronic, or Acute on Chronic? @ -Acute on chronic Uncomplicated (without systemic symptoms) or Complicated (systemic symptoms)? @ -Complicated Side effects of treatment? @ -No Exacerbation, Progression, or Severe Exacerbation? @ -No Poses a threat to life or bodily function? How? (Chest pain, USA, ME, pneumonia, PE, COPD, DKA, ARF, appy, cholecystitis, CVA, Diverticulitis, Homicidal, Suicidal, threat to staff... and all critical care pts) @Yes, arrhythmia, cardiogenic shock - Lab Data Result diagrams: 02/05/25 08:59 02/05/25 08:59 Lab Results 02/05/25 02/05/25 02/05/25 Range/Units 08:59 08:59 08:59 WBC 8.58 (4.50-10.00) 10*3/uL RBC 4.28 (4.10-5.20) 10*6/uL Hgb 13.5 (12.0-15.0) g/dL Hct 38.9 (37.2-46.3) % MCV 90.9 (80.0-97.0) fL MCH 31.5 (27.0-32.0) pg MCHC 34.7 (32.0-37.0) g/dL Plt Count 194 (140-440) 10*3/uL MPV 9.9 (9.5-12.2) fL Immature Gran % (Auto) 0.1 % Neutrophils % 77.2 % Lymphocytes % 14.0 % Monocytes % 7.2 % Eosinophils % 1.2 % Basophils % 0.3 % Immature Gran # 0.01 (0.00-0.04) 10*3/uL Neutrophils # 6.62 (1.80-7.70) 10*3/uL Lymphocytes # 1.20 (0.90-5.00) 10*3/uL Monocytes # 0.62 (0.20-1.00) 10*3/uL Eosinophils # 0.10 (0.04-0.35) 10*3/uL Basophils # 0.03 (0.00-0.10) 10*3/uL PT 11.3 (10.0-12.5) sec INR 1.0 (<1.2) APTT 23.9 (22.0-30.0) sec Sodium 140 (137-145) mmol/L Potassium 4.0 (3.5-5.1) mmol/L Chloride 107 (98-107) mmol/L Carbon Dioxide 25 (22-30) mmol/L Anion Gap 8 mmol/L BUN 19 H (7-17) mg/dL Creatinine 0.82 (0.52-1.04) mg/dL Est GFR (CKD-EPI)AfAm 82 (>60 ml/min/1.73 sqM) Est GFR (CKD-EPI)NonAf 71 (>60 ml/min/1.73 sqM) Glucose 124 H (74-99) mg/dL Calcium 9.3 (8.4-10.2) mg/dL Magnesium 1.8 (1.6-2.3) mg/dL Total Bilirubin 1.3 (0.2-1.3) mg/dL AST 28 (14-36) U/L ALT 16 (4-34) U/L Alkaline Phosphatase 66 (38-126) U/L Troponin I (0.000-0.034) ng/mL Total Protein 8.3 H (6.3-8.2) g/dL Albumin 4.2 (3.5-5.0) g/dL // Range/Units 08:59 WBC (4.50-10.00) 10*3/uL RBC (4.10-5.20) 10*6/uL Hgb (12.0-15.0) g/dL Hct (37.2-46.3) % MCV (80.0-97.0) fL MCH (27.0-32.0) pg MCHC (32.0-37.0) g/dL Plt Count (140-440) 10*3/uL MPV (9.5-12.2) fL Immature Gran % (Auto) % Neutrophils % % Lymphocytes % % Monocytes % % Eosinophils % % Basophils % % Immature Gran # (0.00-0.04) 10*3/uL Neutrophils # (1.80-7.70) 10*3/uL Lymphocytes # (0.90-5.00) 10*3/uL Monocytes # (0.20-1.00) 10*3/uL Eosinophils # (0.04-0.35) 10*3/uL Basophils # (0.00-0.10) 10*3/uL PT (10.0-12.5) sec INR (<1.2) APTT (22.0-30.0) sec Sodium (137-145) mmol/L Potassium (3.5-5.1) mmol/L Chloride (98-107) mmol/L Carbon Dioxide (22-30) mmol/L Anion Gap mmol/L BUN (7-17) mg/dL Creatinine (0.52-1.04) mg/dL Est GFR (CKD-EPI)AfAm (>60 ml/min/1.73 sqM) Est GFR (CKD-EPI)NonAf (>60 ml/min/1.73 sqM) Glucose (74-99) mg/dL Calcium (8.4-10.2) mg/dL Magnesium (1.6-2.3) mg/dL Total Bilirubin (0.2-1.3) mg/dL AST (14-36) U/L ALT (4-34) U/L Alkaline Phosphatase (38-126) U/L Troponin I <0.012 (0.000-0.034) ng/mL Total Protein (6.3-8.2) g/dL Albumin (3.5-5.0) g/dL Critical Care Time Critical Care Time: Yes Total Critical Care Time: 35 Disposition Clinical Impression: Atrial fibrillation with rapid ventricular response Disposition: ADMITTED IP TO THIS HOSP Condition: Stable Is patient prescribed a controlled substance at d/c from ED?: No Referrals: Bessy Chowdhury MD [Primary Care Provider] - 1-2 days Time of Disposition: 09:33
--- NOTE | 2025-02-05 08:40 | XR ---
EXAMINATION TYPE: XR chest 2V DATE OF EXAM: 02/05/2025 8:35 AM COMPARISON: None. CLINICAL INDICATION: Female, 74 years old with history of dysrhythmia, TECHNIQUE: XR chest 2V view(s) obtained. FINDINGS: The heart size is normal. The pulmonary vasculature is normal. The lungs are clear. IMPRESSION: 1. No acute pulmonary process. [facility], , 02/05/2025 8:38 AM
[2025-02-05 09:06] LABS: Basophils # (A) 0.03 10*3/uL (0.00-0.10); Basophils % (A) 0.3 %; Eosinophils # (A) 0.10 10*3/uL (0.04-0.35); Eosinophils % (A) 1.2 %; HCT 38.9 % (37.2-46.3); HGB 13.5 g/dL (12.0-15.0); Lymphocytes # (A) 1.20 10*3/uL (0.90-5.00); Lymphocytes % (A) 14.0 %; MCH 31.5 pg (27.0-32.0); MCHC 34.7 g/dL (32.0-37.0); MCV 90.9 fL (80.0-97.0); Monocytes # (A) 0.62 10*3/uL (0.20-1.00); Monocytes % (A) 7.2 %; Neutrophils # (A) 6.62 10*3/uL (1.80-7.70); Neutrophils % (A) 77.2 %; Platelet Count 194 10*3/uL (140-440); RBC 4.28 10*6/uL (4.10-5.20); RDW 13.2 % (11.5-14.5); WBC 8.58 10*3/uL (4.50-10.00)
[2025-02-05 09:16] LABS: ALT 16 U/L (4-34); AST 28 U/L (14-36); African American GFR (CKD) 82 (>60 ml/min/1.73 sqM); Albumin 4.2 g/dL (3.5-5.0); Alkaline Phosphatase 66 U/L (38-126); Anion Gap 8 mmol/L; Blood Urea Nitrogen 19 mg/dL (7-17); Calcium 9.3 mg/dL (8.4-10.2); Carbon Dioxide 25 mmol/L (22-30); Chloride 107 mmol/L (98-107); Glucose 124 mg/dL (74-99); Magnesium 1.8 mg/dL (1.6-2.3); Non-African American GFR(CKD) 71 (>60 ml/min/1.73 sqM); Potassium 4.0 mmol/L (3.5-5.1); Sodium 140 mmol/L (137-145); Total Protein 8.3 g/dL (6.3-8.2)
[2025-02-05 09:17] LABS: INR 1.0 (<1.2); Partial Thromboplastin Time 23.9 sec (22.0-30.0); Prothrombin Time 11.3 sec (10.0-12.5)
[2025-02-05] MEDS ORDERED: ACETAMINOPHEN TAB 325 MG TAB PO PRN (09:30)
[2025-02-05] MEDS ORDERED: NALOXONE 0.4 MG/ML 1 ML VIAL IV PRN (09:30)
[2025-02-05] MEDS: DILTIAZEM 5 MG/ML 5 ML VIAL IVP STA (09:36)
[2025-02-05] MEDS: DILTIAZEM 125 MG in DEXTROSE 5% IN WATER 100 ML IV SCH (10:05)
--- NOTE | 2025-02-05 16:32 | P.HPIM ---
History of Present Illness H&P Date: 02/05/25 Chief Complaint: palpitations 74-year-old woman with medical history of paroxysmal atrial fibrillation, hypertension, hyperlipidemia presented for evaluation palpitations. Patient says that starting yesterday she started to notice that she felt a little bit more lightheaded than normal and noticed that her heart was racing every time she walked, took her heart rate and blood pressure and noted that her pulse was in the 140s and her pressure was in the 70s over 30s. She attempted to get some rest but this did not reduce her heart rate or increase her blood pressure and therefore she presented emergency room for further evaluation. She denies fevers, chills, nausea, vomiting, chest pain, syncope. She does report frequent syncope. She denies abdominal pain, constipation, diarrhea, dysuria, dyschezia, numbness/weakness of extremities. In the emergency room, patient was afebrile, Heart rate 140s, blood pressure 100s over 60s, saturating well on room air. CBC is unremarkable. Basic metabolic panel is unremarkable. Chemistries are unremarkable. Troponin was less than 0.012. Coags are unremarkable. EKG showed atrial fibrillation with RVR, normal axis, did show diffuse ST depressions in leads I, 2, 3, aVF, V4 through V6. Chest x-ray showed no acute cardiopulmonary process. Patient was started on a Cardizem drip after a 10 mg push of Cardizem and the case was discussed with the emergency room physician who requested admission to the hospital for further management of paroxysmal atrial fibrillation. All Systems reviewed and pertinent positives and negatives noted in HPI, all other symptoms are negative Gen: In NAD, non-toxic HEENT: normocephalic, atraumatic, hearing acuity is intant, mucous membranes moist CVS: perfusing all extremities well, bilateral lower extremity pitting edema, Respiratory: symmetric chest expansion, no accessory muscle use, GI: soft, NTTP, ND, : no suprapubic tenderness, no CVA tenderness MSK/Derm: no rashes, cyanosis Neuro: CN II-XII intact, no motor weakness, Psych: cooperative, euthymic mood, judgment and insight is intact Labs and imaging as above Assessment/plan: Paroxysmal atrial fibrillation with RVR - Admit to observation, telemetry - Cardiology consult - Resume home metoprolol, increase nighttime dose to 50 mg - N.p.o. at midnight for ROLAND cardioversion - Resume home apixaban Hypertension Hypothyroidism -Resume home spironolactone, amlodipine Patient is full code Past Medical History Past Medical History: Atrial Fibrillation, Hypertension, Osteoarthritis (OA), Pneumonia, Renal Disease, Sleep Apnea/CPAP/BIPAP Additional Past Medical History / Comment(s): Nephrotic syndrome A CHILD-now resolved, SOB w/exertion, couldn't use CPAP History of Any Multi-Drug Resistant Organisms: None Reported Past Surgical History: Heart Catheterization, Orthopedic Surgery Additional Past Surgical History / Comment(s): laparoscopy, cardioversion, arth roscopy left knee Past Anesthesia/Blood Transfusion Reactions: Postoperative Nausea & Vomiting (PONV) Past Psychological History: Panic Disorder Smoking Status: Former smoker Past Alcohol Use History: Rare Past Drug Use History: None Reported - Past Family History Mother Family Medical History: AICD/Pacemaker, Dementia Father Additional Family Medical History / Comment(s): WITH HEART ATTACK Medications and Allergies Home Medications Medication Instructions Recorded Confirmed Type Levothyroxine Sodium [Synthroid] 75 mcg PO DAILY 04/17/22 02/05/25 History Apixaban [Eliquis] 5 mg PO BID #60 tab 04/18/22 02/05/25 Rx Spironolactone [Aldactone] 25 mg PO DAILY #90 tab 12/12/23 02/05/25 Rx Metoprolol Tartrate 25 mg PO HS 02/05/25 02/05/25 History Metoprolol Tartrate 50 mg PO DAILY 02/05/25 02/05/25 History amLODIPine [Norvasc] 2.5 mg PO DAILY 02/05/25 02/05/25 History Allergies Allergy/AdvReac Type Severity Reaction Status Date / Time No Known Allergies Allergy Verified 02/05/25 13:08 Physical Exam Osteopathic Statement: *. No significant issues noted on an osteopathic structural exam other than those noted in the History and Physical/Consult. Vitals: Vital Signs Temp Pulse Resp BP Pulse Ox 02/05/25 14:40 156 H 18 117/76 96 02/05/25 13:06 131 H 18 116/50 97 02/05/25 11:00 141 H 24 101/75 96 02/05/25 09:37 140 H 18 123/76 97 02/05/25 08:46 98.1 F 138 H 18 129/82 95 02/05/25 07:39 98.3 F 94 20 138/99 95 Intake and Output 02/05/25 02/05/25 02/05/25 06:59 14:59 22:59 Intake Total 38.5 Balance 38.5 Intake: Intake, IV Titration 38.5 Amount Diltiazem 125 mg In 38.5 Dextrose 5% in Water 100 ml @ 5 MG/HR 5 mls/hr IV .Q24H [facility] Rx#:[id number] Other: Weight 97.522 kg Results CBC & Chem 7: 02/05/25 08:59 02/05/25 08:59 Labs: Abnormal Lab Results - Last 24 Hours (Table) 02/05/25 Range/Units 08:59 BUN 19 H (7-17) mg/dL Glucose 124 H (74-99) mg/dL Total Protein 8.3 H (6.3-8.2) g/dL
[2025-02-05] MEDS: APIXABAN 5 MG TAB PO SCH (20:53)
[2025-02-05] MEDS: METOPROLOL TARTRATE 50 MG TAB PO SCH (20:54)
[2025-02-06] MEDS: LEVOTHYROXINE 75 MCG TAB PO SCH (06:12)
[2025-02-06 06:13] LABS: Basophils # (A) 0.01 10*3/uL (0.00-0.10); Basophils % (A) 0.1 %; Eosinophils # (A) 0.14 10*3/uL (0.04-0.35); Eosinophils % (A) 2.1 %; HCT 38.7 % (37.2-46.3); HGB 12.8 g/dL (12.0-15.0); Lymphocytes # (A) 1.98 10*3/uL (0.90-5.00); Lymphocytes % (A) 29.4 %; MCH 30.5 pg (27.0-32.0); MCHC 33.1 g/dL (32.0-37.0); MCV 92.4 fL (80.0-97.0); Monocytes # (A) 0.64 10*3/uL (0.20-1.00); Monocytes % (A) 9.5 %; Neutrophils # (A) 3.96 10*3/uL (1.80-7.70); Neutrophils % (A) 58.8 %; Platelet Count 198 10*3/uL (140-440); RBC 4.19 10*6/uL (4.10-5.20); RDW 13.4 % (11.5-14.5); WBC 6.74 10*3/uL (4.50-10.00)
[2025-02-06 06:32] LABS: African American GFR (CKD) 82 (>60 ml/min/1.73 sqM); Anion Gap 6 mmol/L; Blood Urea Nitrogen 17 mg/dL (7-17); Calcium 9.2 mg/dL (8.4-10.2); Carbon Dioxide 25 mmol/L (22-30); Chloride 106 mmol/L (98-107); Glucose 109 mg/dL (74-99); Magnesium 1.8 mg/dL (1.6-2.3); Non-African American GFR(CKD) 71 (>60 ml/min/1.73 sqM); Potassium 3.6 mmol/L (3.5-5.1); Sodium 137 mmol/L (137-145)
[2025-02-06] MEDS: SPIRONOLACTONE 25 MG TAB PO SCH (09:44)
--- NOTE | 2025-02-06 11:42 | P.CRDCN ---
History of Present Illness Consult date: 02/06/25 Consult reason: atrial fibrillation History of present illness: The patient is a 74-year-old female who follows in the office with Dr. Edwards. Patient was seen within the last month and states she was told she was doing well. 2 days ago patient developed new onset of dizziness, however when she checked her blood pressure and heart rate her vital signs were normal. Yesterday the patient developed new onset of palpitations. With her known his tory of atrial fibrillation, she therefore proceeded to the emergency room with a heart rate in the 140s. Patient has been started on Cardizem drip and it is currently infusing at 15. Patient's heart rates remain in the 140s. Blood pressure in the 1 teens over 70s. Patient interviewed and examined current resting comfortably in bed. She denies any chest pain or shortness of breath. DIAGNOSTICS: EKG and telemetry shows A-fib with RVR Chest x-ray shows no acute cardiopulmonary process Lab data: WBC 6.7, hemoglobin 12.8, hematocrit 38.7, platelet 198, sodium 137, potassium 3.6, BUN 17, creatinine 0.82, magnesium 1.8, TSH 0.48 REVIEW OF SYSTEMS: No fever or chills. No cough or expectoration. No diaphoresis. Patient denies headache, dizziness, blurred vision, double vision. Patient denies any stomach discomfort. No nausea, vomiting. No hematochezia. No hematemesis. Denies any black stools or blood in his stools. Denies dysuria or hematuria. No muscle weakness or numbness. Positive for fatigue. Positive for palpitations PHYSICAL EXAMINATION: This is a 74-year-old female in no apparent distress at the time of my examination. HEENT: Head is atraumatic, normocephalic. Pupils are equal, round. Sclerae anicteric. There is no jugular venous distention. No carotid bruit is heard. CHEST EXAMINATION: Lungs are clear to auscultation. No chest wall tenderness is noted on palpation or with deep breathing. HEART EXAMINATION: Irregular rate and rhythm. S1, S2 heard. No murmurs, gallops or rub. ABDOMEN: Soft, nontender. Bowel sounds are heard. No organomegaly noted. EXTREMITIES: 2+ peripheral pulses. Mild lower extremity swelling and no calf tenderness noted. NEUROLOGIC EXAMINATION: Patient is awake, alert and oriented x3. FINAL ASSESSMENT AND PLAN: Paroxysmal atrial fibrillation with RVR Mitral regurgitation, moderate Hypothyroidism Obstructive sleep apnea PLAN: Discontinue amlodipine as she is currently on Cardizem and borderline hypotensive Slowly increase beta-blockers for rate control Patient may need to undergo cardioversion Further recommendations to be based upon clinical course I am dictating on behalf of Dr Harvey Gill's history/physical and assessm ent/plan. Past Medical History Past Medical History: Atrial Fibrillation, Hypertension, Osteoarthritis (OA), Pneumonia, Renal Disease, Sleep Apnea/CPAP/BIPAP Additional Past Medical History / Comment(s): Nephrotic syndrome A CHILD-now resolved, SOB w/exertion, couldn't use CPAP History of Any Multi-Drug Resistant Organisms: None Reported Past Surgical History: Heart Catheterization, Orthopedic Surgery Additional Past Surgical History / Comment(s): laparoscopy, cardioversion, arthroscopy left knee Past Anesthesia/Blood Transfusion Reactions: Postoperative Nausea & Vomiting (PONV) Past Psychological History: Panic Disorder Smoking Status: Former smoker Past Alcohol Use History: Rare Past Drug Use History: None Reported - Past Family History Mother Family Medical History: AICD/Pacemaker, Dementia Father Additional Family Medical History / Comment(s): WITH HEART ATTACK Medications and Allergies Home Medications Medication Instructions Recorded Confirmed Type Levothyroxine Sodium [Synthroid] 75 mcg PO DAILY 04/17/22 02/05/25 History Apixaban [Eliquis] 5 mg PO BID #60 tab 04/18/22 02/05/25 Rx Spironolactone [Aldactone] 25 mg PO DAILY #90 tab 12/12/23 02/05/25 Rx Metoprolol Tartrate 25 mg PO HS 02/05/25 02/05/25 History Metoprolol Tartrate 50 mg PO DAILY 02/05/25 02/05/25 History amLODIPine [Norvasc] 2.5 mg PO DAILY 02/05/25 02/05/25 History Allergies Allergy/AdvReac Type Severity Reaction Status Date / Time No Known Allergies Allergy Verified 02/05/25 13:08 Physical Exam Vitals: Vital Signs Temp Pulse Resp BP Pulse Ox 02/06/25 07:47 97.5 F L 141 H 18 92/76 97 02/06/25 07:00 122 H 18 95/57 02/06/25 06:00 88 18 96/60 95 02/06/25 04:00 98.7 F 83 18 94/50 96 02/06/25 00:00 98.8 F 78 18 106/57 98 02/05/25 23:00 68 16 90/74 95 02/05/25 20:53 109 H 18 107/67 98 02/05/25 18:19 152 H 16 120/51 95 02/05/25 16:50 93 18 93/79 96 02/05/25 14:40 156 H 18 117/76 96 02/05/25 13:06 131 H 18 116/50 97 02/05/25 11:00 141 H 24 101/75 96 02/05/25 09:37 140 H 18 123/76 97 Intake and Output 02/05/25 02/06/25 02/06/25 22:59 06:59 14:59 Intake Total 83.5 106.25 Balance 83.5 106.25 Intake: Intake, IV Titration 83.5 106.25 Amount Diltiazem 125 mg In 83.5 106.25 Dextrose 5% in Water 100 ml @ 5 MG/HR 5 mls/hr IV .Q24H [facility] Rx#:[id number] Results 02/06/25 05:46 02/06/25 05:46 Cardiac Enzymes 02/05/25 02/05/25 Range/Units 08:59 08:59 AST 28 (14-36) U/L Troponin I <0.012 (0.000-0.034) ng/mL Coagulation 02/05/25 Range/Units 08:59 PT 11.3 (10.0-12.5) sec APTT 23.9 (22.0-30.0) sec CBC 02/05/25 02/06/25 Range/Units 08:59 05:46 WBC 8.58 6.74 (4.50-10.00) 10*3/uL RBC 4.28 4.19 (4.10-5.20) 10*6/uL Hgb 13.5 12.8 (12.0-15.0) g/dL Hct 38.9 38.7 (37.2-46.3) % Plt Count 194 198 (140-440) 10*3/uL Comprehensive Metabolic Panel 02/05/25 02/06/25 Range/Units 08:59 05:46 Sodium 140 137 (137-145) mmol/L Potassium 4.0 3.6 (3.5-5.1) mmol/L Chloride 107 106 (98-107) mmol/L Carbon Dioxide 25 25 (22-30) mmol/L BUN 19 H 17 (7-17) mg/dL Creatinine 0.82 0.82 (0.52-1.04) mg/dL Glucose 124 H 109 H (74-99) mg/dL Calcium 9.3 9.2 (8.4-10.2) mg/dL AST 28 (14-36) U/L ALT 16 (4-34) U/L Alkaline Phosphatase 66 (38-126) U/L Total Protein 8.3 H (6.3-8.2) g/dL Albumin 4.2 (3.5-5.0) g/dL Current Medications Generic Name Dose Route Start Last Admin Trade Name Freq PRN Reason Stop Dose Admin Acetaminophen 650 mg 02/05/25 09:30 Acetaminophen Tab 325 Mg Tab PO Q6HR PRN Mild Pain or Fever > 100.5 Amlodipine Besylate 2.5 mg 02/06/25 09:00 Amlodipine 2.5 Mg Tab PO DAILY [facility] Apixaban 5 mg 02/05/25 21:00 02/05/25 20:53 Apixaban 5 Mg Tab PO 5 mg BID DOREEN Administration Protocol Diltiazem HCl 125 mg/ Dextrose 125 mls @ 5 mls/hr 02/05/25 09:15 02/06/25 03:20 /Water IV 15 mg/hr .Q24H D[facility] 15 mls/hr Administration Protocol 5 MG/HR Levothyroxine Sodium 75 mcg 02/06/25 06:30 02/06/25 06:12 Levothyroxine 75 Mcg Tab PO 75 mcg DAILY@0630 DOREEN Administration Metoprolol Tartrate 50 mg 02/05/25 21:00 02/05/25 20:54 Metoprolol Tartrate 50 Mg Tab PO 50 mg HS DOREEN Administration Metoprolol Tartrate 50 mg 02/06/25 09:00 Metoprolol Tartrate 50 Mg Tab PO DAILY DOREEN Naloxone HCl 0.2 mg 02/05/25 09:30 Naloxone 0.4 Mg/Ml 1 Ml Vial IV Q2M PRN Opioid Reversal Spironolactone 25 mg 02/06/25 09:00 Spironolactone 25 Mg Tab PO DAILY DOREEN Intake and Output 02/05/25 02/06/25 02/06/25 22:59 06:59 14:59 Intake Total 83.5 106.25 Balance 83.5 106.25 Intake: Intake, IV Titration 83.5 106.25 Amount Diltiazem 125 mg In 83.5 106.25 Dextrose 5% in Water 100 ml @ 5 MG/HR 5 mls/hr IV .Q24H [facility] Rx#:[id number] 02/06/25 05:46 02/06/25 05:46
[2025-02-06] MEDS: amLODIPine 2.5 MG TAB PO SCH (13:02)
[2025-02-06] MEDS: METOPROLOL TARTRATE 50 MG TAB PO SCH (13:03)
[2025-02-06] MEDS: METOPROLOL TARTRATE 50 MG TAB PO STA (13:11)
[2025-02-06] MEDS: METOPROLOL TARTRATE 25 MG TAB PO STA (13:54)
--- NOTE | 2025-02-06 14:08 | P.PN ---
Subjective Progress Note Date: 02/06/25 No new complaints today. [place] hypotensive. Rates still uncontrolled. Gen: In NAD, non-toxic HEENT: normocephalic, atraumatic, hearing acuity is intant, mucous membranes moist CVS: perfusing all extremities well, bilateral lower extremity pitting edema, Respiratory: symmetric chest expansion, no accessory muscle use, GI: soft, NTTP, ND, : no suprapubic tenderness, no CVA tenderness MSK/Derm: no rashes, cyanosis Neuro: CN II-XII intact, no motor weakness, Psych: cooperative, euthymic mood, judgment and insight is intact Hospital Course: 74-year-old woman with medical history of paroxysmal atrial fibrillation, hypertension, hyperlipidemia presented for evaluation palpitations. In the emergency room, patient was afebrile, Heart rate 140s, blood pressure 100s over 60s, saturating well on room air. CBC is unremarkable. Basic metabolic panel is unremarkable. Chemistries are unremarkable. Troponin was less than 0.012. Coags are unremarkable. EKG showed atrial fibrillation with RVR, normal axis, did show diffuse ST depressions in leads I, 2, 3, aVF, V4 through V6. Chest x-ray showed no acute cardiopulmonary process. Patient was started on a Cardizem drip after a 10 mg push of Cardizem and the case was discussed with the emergency room physician who requested admission to the hospital for further management of paroxysmal atrial fibrillation. Assessment/plan: Paroxysmal atrial fibrillation with RVR - Admit to observation, telemetry - Cardiology consult - Metoprolol 75mg BID - N.p.o. at midnight for ROLAND cardioversion - Resume home apixaban Hypertension Hypothyroidism -Resume home spironolactone, amlodipine Objective - Vital Signs Vital signs: Vital Signs Temp 97.8 F 02/06/25 13:00 Pulse 153 H 02/06/25 13:52 Resp 16 02/06/25 13:52 BP 135/89 02/06/25 13:52 Pulse Ox 96 02/06/25 13:52 FiO2 Intake & Output 02/05/25 02/06/25 02/06/25 18:59 06:59 18:59 Intake Total 38.5 189.75 243 Balance 38.5 189.75 243 Weight 97.522 kg Intake: Intake, IV Titration 38.5 189.75 125 Amount Diltiazem 125 mg In 38.5 189.75 125 Dextrose 5% in Water 100 ml @ 5 MG/HR 5 mls/hr IV .Q24H [facility] Rx#:[id number] Oral 118 - Labs CBC & Chem 7: 02/06/25 05:46 02/06/25 05:46 Labs: Abnormal Lab Results - Last 24 Hours (Table) 02/06/25 Range/Units 05:46 Glucose 109 H (74-99) mg/dL
[2025-02-06] MEDS: METOPROLOL TARTRATE 25 MG TAB PO SCH (19:56)
--- NOTE | 2025-02-07 09:39 | P.PN ---
Subjective Progress Note Date: 02/07/25 This is Santosh Rao NP, I'm dictating on behalf of Dr. Gill's H&P and A&P. Patient was interviewed and examined. Patient is a pleasant 74-year-old female who presented to the hospital with shortness of breath and palpitations, found to be in A-fib with RVR. Patient has been on a diltiazem drip, and despite this continues to have elevated heart rates into the 130 range. She denies any chest pain, continues to appreciate variable shortness of breath and some palpitations. GENERAL: Well-appearing, well-nourished and in no acute distress. NECK: Supple without JVD or thyromegaly. LUNGS: Breath sounds clear to auscultation bilaterally. Respiration equal and unlabored. No wheezes, rales or rhonchi. HEART: Regular rate and rhythm without murmurs, rubs or gallops. S1 and S2 heard. EXTREMITIES: Normal range of motion, no edema. No clubbing or cyanosis. Peripheral pulses intact and strong. VITALS: Temp 97.7, pulse 138, respirations 18, blood pressure 104/75, O2 saturation 97% on room air TELEMETRY: A-fib with RVR LABS: No new labs since 02/06/2025 IMPRESSION: 1. Paroxysmal atrial fibrillation with RVR 2. Mitral regurgitation, moderate 3. Upper thyroidism 4. Obstructive sleep apnea PLAN: Continue IV Cardizem, stop at 8 AM tomorrow morning. N.p.o. at midnight. Patient will undergo cardioversion with Dr. Casas tomorrow morning. Continue Eliquis. Further recommendations based on patient's clinical course. Objective - Vital Signs Vital signs: Vital Signs Temp 97.7 F 02/07/25 03:03 Pulse 138 H 02/07/25 08:48 Resp 18 02/07/25 08:48 BP 104/75 02/07/25 08:48 Pulse Ox 97 02/07/25 08:48 FiO2 Intake & Output 02/06/25 02/07/25 02/07/25 18:59 06:59 18:59 Intake Total 442.917 26.292 21.083 Balance 442.917 26.292 21.083 Weight 97.522 kg 109.2 kg Intake: Intake, IV Titration 206.917 26.292 21.083 Amount Diltiazem 125 mg In 206.7 26.292 21.083 Dextrose 5% in Water 100 ml @ 5 MG/HR 5 mls/hr IV .Q24H [facility] Rx#:[id number] Oral 236 Other: Voiding Method Toilet # Voids 7 - Labs CBC & Chem 7: 02/06/25 05:46 02/06/25 05:46
--- NOTE | 2025-02-07 13:27 | P.PN ---
Subjective Progress Note Date: 02/07/25 No new complaints today. Rates still uncontrolled. Plan for ROLAND/CV tomorrow. Gen: In NAD, non-toxic HEENT: normocephalic, atraumatic, hearing acuity is intant, mucous membranes moist CVS: perfusing all extremities well, bilateral lower extremity pitting edema, Respiratory: symmetric chest expansion, no accessory muscle use, GI: soft, NTTP, ND, : no suprapubic tenderness, no CVA tenderness MSK/Derm: no rashes, cyanosis Neuro: CN II-XII intact, no motor weakness, Psych: cooperative, euthymic mood, judgment and insight is intact Hospital Course: 74-year-old woman with medical history of paroxysmal atrial fibrillation, hypertension, hyperlipidemia presented for evaluation palpitations. In the emergency room, patient was afebrile, Heart rate 140s, blood pressure 100s over 60s, saturating well on room air. CBC is unremarkable. Basic metabolic panel is unremarkable. Chemistries are unremarkable. Troponin was less than 0.012. Coags are unremarkable. EKG showed atrial fibrillation with RVR, normal axis, did show diffuse ST depressions in leads I, 2, 3, aVF, V4 through V6. Chest x- ray showed no acute cardiopulmonary process. Patient was started on a Cardizem drip after a 10 mg push of Cardizem and the case was discussed with the emergency room physician who requested admission to the hospital for further management of paroxysmal atrial fibrillation. Assessment/plan: Paroxysmal atrial fibrillation with RVR - Admit to observation, telemetry - Cardiology consult - Metoprolol 75mg BID - N.p.o. at midnight for ROLAND cardioversion - Resume home apixaban Hypertension Hypothyroidism -Resume home spironolactone, amlodipine Objective - Vital Signs Vital signs: Vital Signs Temp 97.7 F 02/07/25 03:03 Pulse 65 02/07/25 12:20 Resp 18 02/07/25 12:20 BP 99/64 02/07/25 12:20 Pulse Ox 95 02/07/25 12:20 FiO2 Intake & Output 02/06/25 02/07/25 02/07/25 18:59 06:59 18:59 Intake Total 442.917 26.292 194.833 Balance 442.917 26.292 194.833 Weight 97.522 kg 109.2 kg Intake: Intake, IV Titration 206.917 26.292 76.833 Amount Diltiazem 125 mg In 206.917 26.292 76.833 Dextrose 5% in Water 100 ml @ 5 MG/HR 5 mls/hr IV .Q24H [facility] Rx#:[id number] Oral 236 118 Other: Voiding Method Toilet Toilet # Voids 7 1 - Labs CBC & Chem 7: 02/06/25 05:46 02/06/25 05:46
[2025-02-07] MEDS: SODIUM CHLORIDE 0.9% 1,000 ML IV SCH (19:56)
[2025-02-08 06:34] LABS: Basophils # (A) 0.03 10*3/uL (0.00-0.10); Basophils % (A) 0.5 %; Eosinophils # (A) 0.21 10*3/uL (0.04-0.35); Eosinophils % (A) 3.2 %; HCT 39.5 % (37.2-46.3); HGB 12.9 g/dL (12.0-15.0); Lymphocytes # (A) 1.94 10*3/uL (0.90-5.00); Lymphocytes % (A) 29.4 %; MCH 30.5 pg (27.0-32.0); MCHC 32.7 g/dL (32.0-37.0); MCV 93.4 fL (80.0-97.0); Monocytes # (A) 0.74 10*3/uL (0.20-1.00); Monocytes % (A) 11.2 %; Neutrophils # (A) 3.66 10*3/uL (1.80-7.70); Neutrophils % (A) 55.5 %; Platelet Count 198 10*3/uL (140-440); RBC 4.23 10*6/uL (4.10-5.20); RDW 13.2 % (11.5-14.5); WBC 6.59 10*3/uL (4.50-10.00)
[2025-02-08 06:48] LABS: African American GFR (CKD) 71 (>60 ml/min/1.73 sqM); Anion Gap 7 mmol/L; Blood Urea Nitrogen 22 mg/dL (7-17); Calcium 9.4 mg/dL (8.4-10.2); Carbon Dioxide 27 mmol/L (22-30); Chloride 104 mmol/L (98-107); Glucose 103 mg/dL (74-99); Magnesium 1.9 mg/dL (1.6-2.3); Non-African American GFR(CKD) 61 (>60 ml/min/1.73 sqM); Potassium 4.2 mmol/L (3.5-5.1); Sodium 138 mmol/L (137-145)
--- NOTE | 2025-02-08 08:37 | P.PN ---
Subjective Progress Note Date: 02/08/25 The patient was seen and evaluated this morning. She continues to be in atrial fibrillation with RVR and she is on oral anticoagulation. The plan is to pursue a cardioversion later on today. The physical examination is remarkable for irregular rhythm with clear breathing sounds bilaterally and no edema was noted Assessment A-fib with RVR Multiple comorbid conditions Plan Continue the current medical regimen including oral anticoagulation Proceed with cardioversion Objective - Vital Signs Vital signs: Vital Signs Temp 97.5 F L 02/08/25 08:17 Pulse 82 02/08/25 08:17 Resp 16 02/08/25 08:17 BP 119/83 02/08/25 08:17 Pulse Ox 98 02/08/25 08:17 FiO2 Intake & Output 02/07/25 02/08/25 02/08/25 18:59 06:59 18:59 Intake Total 552.833 61.375 10 Balance 552.833 61.375 10 Weight 108.5 kg Intake: IV 10 Invasive Line 1 10 Intake, IV Titration 76.833 61.375 Amount Diltiazem 125 mg In 76.833 61.375 Dextrose 5% in Water 100 ml @ 5 MG/HR 5 mls/hr IV .Q24H [facility] Rx#:[id number] Oral 476 Other: Voiding Method Toilet Toilet # Voids 1 2 - Labs CBC & Chem 7: 02/08/25 06:08 02/08/25 06:08 Labs: Abnormal Lab Results - Last 24 Hours (Table) 02/08/25 Range/Units 06:08 BUN 22 H (7-17) mg/dL Glucose 103 H (74-99) mg/dL
--- NOTE | 2025-02-08 13:16 | P.PN ---
Subjective Progress Note Date: 02/08/25 No new complaints today. Rates still uncontrolled. Plan for ROLAND/CV today, will monitor overnight with likely d/c plan tomorrow AM. Gen: In NAD, non-toxic HEENT: normocephalic, atraumatic, hearing acuity is intant, mucous membranes moist CVS: perfusing all extremities well, bilateral lower extremity pitting edema, Respiratory: symmetric chest expansion, no accessory muscle use, GI: soft, NTTP, ND, : no suprapubic tenderness, no CVA tenderness MSK/Derm: no rashes, cyanosis Neuro: CN II-XII intact, no motor weakness, Psych: cooperative, euthymic mood, judgment and insight is intact Hospital Course: 74-year-old woman with medical history of paroxysmal atrial fibrillation, hypertension, hyperlipidemia presented for evaluation palpitations. In the emergency room, patient was afebrile, Heart rate 140s, blood pressure 100s over 60s, saturating well on room air. CBC is unremarkable. Basic metabolic panel is unremarkable. Chemistries are unremarkable. Troponin was less than 0.012. Coags are unremarkable. EKG showed atrial fibrillation with RVR, normal axis, did show diffuse ST depressions in leads I, 2, 3, aVF, V4 through V6. Chest x- ray showed no acute cardiopulmonary process. Patient was started on a Cardizem drip after a 10 mg push of Cardizem and the case was discussed with the emergency room physician who requested admission to the hospital for further management of paroxysmal atrial fibrillation. Assessment/plan: Paroxysmal atrial fibrillation with RVR - Admit to observation, telemetry - Cardiology consult - Metoprolol 75mg BID - ROLAND cardioversion today - Resume home apixaban Hypertension Hypothyroidism -Resume home spironolactone, amlodipine Objective - Vital Signs Vital signs: Vital Signs Temp 97.8 F 02/08/25 11:47 Pulse 73 02/08/25 11:47 Resp 16 02/08/25 11:47 BP 104/73 02/08/25 11:47 Pulse Ox 98 02/08/25 11:47 FiO2 Intake & Output 02/07/25 02/08/25 02/08/25 18:59 06:59 18:59 Intake Total 552.833 61.375 128 Balance 552.833 61.375 128 Weight 108.5 kg Intake: IV 10 Invasive Line 1 10 Intake, IV Titration 76.833 61.375 Amount Diltiazem 125 mg In 76.833 61.375 Dextrose 5% in Water 100 ml @ 5 MG/HR 5 mls/hr IV .Q24H [facility] Rx#:[id number] Oral 476 118 Other: Voiding Method Toilet Toilet # Voids 1 2 - Labs CBC & Chem 7: 02/08/25 06:08 02/08/25 06:08 Labs: Abnormal Lab Results - Last 24 Hours (Table) 02/08/25 Range/Units 06:08 BUN 22 H (7-17) mg/dL Glucose 103 H (74-99) mg/dL
[2025-02-08] MEDS: DILTIAZEM 5 MG/ML 5 ML VIAL IVP STA ×2 (19:00→21:42)
[2025-02-08] MEDS: DILTIAZEM 125 MG in DEXTROSE 5% IN WATER 100 ML IV SCH (21:42)
--- NOTE | 2025-02-09 14:23 | P.PN ---
Subjective Progress Note Date: 02/09/25 The patient was seen and evaluated this morning. She continues to be in atrial fibrillation with RVR and she is on oral anticoagulation. The plan is to pursue a cardioversion later on today. The physical examination is remarkable for irregular rhythm with clear breathing sounds bilaterally and no edema was noted 02/09/2025 Patient seen and examined. Patient remains in atrial fibrillation with RVR. S he is scheduled for cardioversion today. Heart rate 137, blood pressure 88/61, pulse ox 99% on room air. Assessment A-fib with RVR Multiple comorbid conditions Plan Continue the current medical regimen including oral anticoagulation, Eliquis Proceed with cardioversion today with Dr. Casas Nurse practitioner note has been reviewed, I agree with documented findings and plan of care. Patient was seen and examined. Objective - Vital Signs Vital signs: Vital Signs Temp 97.6 F 02/09/25 07:45 Pulse 104 H 02/09/25 07:45 Resp 18 02/09/25 07:45 BP 109/80 02/09/25 07:45 Pulse Ox 98 02/09/25 07:45 FiO2 Intake & Output 02/08/25 02/09/25 02/09/25 18:59 06:59 18:59 Intake Total 256 98.376 Balance 256 98.376 Weight 107.5 kg Intake: IV 20 20 Invasive Line 1 20 20 Intake, IV Titration 78.376 Amount Diltiazem 125 mg In 78.376 Dextrose 5% in Water 100 ml @ 5 MG/HR 5 mls/hr IV .Q24H [facility] Rx#:[id number] Oral 236 Other: Voiding Method Toilet # Voids 2 2 - Labs CBC & Chem 7: 02/08/25 06:08 02/08/25 06:08
[2025-02-09] MEDS ORDERED: PROPOFOL 10 MG/ML 20 ML VIAL IV ONE (15:11)
[2025-02-09] MEDS: IV FLUID CONTINUATION 1,000 ML IV ONE (15:14)
--- NOTE | 2025-02-09 19:35 | P.PN ---
Subjective Progress Note Date: 02/09/25 Hospital Course: 74-year-old woman with medical history of paroxysmal atrial fibrillation, hypertension, hyperlipidemia presented for evaluation palpitations. In the emergency room, patient was afebrile, Heart rate 140s, blood pressure 100s over 60s, saturating well on room air. CBC is unremarkable. Basic metabolic panel is unremarkable. Chemistries are unremarkable. Troponin was less than 0.012. Coags are unremarkable. EKG showed atrial fibrillation with RVR, normal axis, did show diffuse ST depressions in leads I, 2, 3, aVF, V4 through V6. Chest x- ray showed no acute cardiopulmonary process. Patient was started on a Cardizem drip after a 10 mg push of Cardizem and the case was discussed with the emergency room physician who requested admission to the hospital for further management of paroxysmal atrial fibrillation. Subjective: Patient seen and examined at bedside. No acute events overnight. Pt states she had palpitations last night and her leg swelling has improved. Pt is scheduled to get cardioversion today. She denies CP, SOB, fevers/chills. Pertinent positives and negatives as discussed above, a complete review of systems was performed and all other systems are negative. Vitals: Signs Reviewed Physical Exam: General: nontoxic, no distress, appears at stated age Derm: warm, dry, intact Head: atraumatic, normocephalic, symmetric Eyes: EOMI, anicteric sclera Mouth: no lip lesion, mucus membranes moist Cardiovascular: S1 S2 reg, no murmur, rubs, or gallops Lungs: CTA bilateral, no rhonchi, no rales, no accessory muscle use Abdominal: soft, non-tender to palpation, no appreciable organomegaly Extremities: no gross muscle atrophy, 1+ edema, Neuro: Alert, Oriented, CNII-XII grossly intact Psych: well appearing, appropriate affect Assessment and Plan: Paroxysmal atrial fibrillation with RVR - Admit to observation, telemetry - Cardiology consult - Metoprolol 75mg BID, patient is also on amiodarone drip - ROLAND cardioversion today with return to sinus rhythm - Resume home apixaban Hypertension Hypothyroidism -Resume home spironolactone, amlodipine Code status: Full code Anticipated discharge place: home Anticipated discharge time: Tomorrow Shabnam Mendoza DO PGY-1 IM Dictation was produced using [employer] dictation software. please excuse any grammatical, word or spelling errors. I saw and evaluated the patient during the gamboa and critical portions of this encounter, and discussed the case in detail with the resident author of this note, I agree with the Assessment and Plan, and my changes, if any, are highlighted in blue. Objective - Vital Signs Vital signs: Vital Signs Temp 97.9 F 02/09/25 16:09 Pulse 66 02/09/25 16:55 Resp 17 02/09/25 16:55 BP 116/59 02/09/25 16:55 Pulse Ox 97 02/09/25 16:55 FiO2 Intake & Output 02/09/25 02/09/25 02/10/25 06:59 18:59 06:59 Intake Total 98.376 230 Balance 98.376 230 Weight 107.5 kg Intake: IV 20 50 Invasive Line 1 20 Intake, IV Titration 78.376 Amount Diltiazem 125 mg In 78.376 Dextrose 5% in Water 100 ml @ 5 MG/HR 5 mls/hr IV .Q24H [facility] Rx#:[id number] Oral 180 Other: Voiding Method Toilet Toilet # Voids 2 3 - Labs CBC & Chem 7: 02/08/25 06:08 02/08/25 06:08
[2025-02-09] MEDS: SODIUM CHLORIDE 0.9% 1,000 ML IV SCH (20:45)
[2025-02-10 08:18] VITALS: BP 133/72; RESP 16; TEMP 97.5
[2025-02-10 09:06] LABS: Basophils # (A) 0.04 10*3/uL (0.00-0.10); Basophils % (A) 0.6 %; Eosinophils # (A) 0.23 10*3/uL (0.04-0.35); Eosinophils % (A) 3.3 %; HCT 39.4 % (37.2-46.3); HGB 12.9 g/dL (12.0-15.0); Lymphocytes # (A) 1.86 10*3/uL (0.90-5.00); Lymphocytes % (A) 27.0 %; MCH 31.0 pg (27.0-32.0); MCHC 32.7 g/dL (32.0-37.0); MCV 94.7 fL (80.0-97.0); Monocytes # (A) 0.59 10*3/uL (0.20-1.00); Monocytes % (A) 8.6 %; Neutrophils # (A) 4.15 10*3/uL (1.80-7.70); Neutrophils % (A) 60.2 %; Platelet Count 216 10*3/uL (140-440); RBC 4.16 10*6/uL (4.10-5.20); RDW 13.3 % (11.5-14.5); WBC 6.89 10*3/uL (4.50-10.00)
[2025-02-10 09:27] LABS: African American GFR (CKD) 65 (>60 ml/min/1.73 sqM); Anion Gap 11 mmol/L; Blood Urea Nitrogen 22 mg/dL (7-17); Calcium 9.6 mg/dL (8.4-10.2); Carbon Dioxide 25 mmol/L (22-30); Chloride 101 mmol/L (98-107); Glucose 106 mg/dL (74-99); Non-African American GFR(CKD) 57 (>60 ml/min/1.73 sqM); Potassium 4.3 mmol/L (3.5-5.1); Sodium 137 mmol/L (137-145)
[2025-02-10] MEDS: METOPROLOL TARTRATE 50 MG TAB PO SCH (09:35)
[2025-02-10 11:33] VITALS: PULSE 49
--- NOTE | 2025-02-10 13:38 | P.PN ---
Subjective Progress Note Date: 02/10/25 The patient was seen and evaluated this morning. She continues to be in atrial fibrillation with RVR and she is on oral anticoagulation. The plan is to pursue a cardioversion later on today. The physical examination is remarkable for irregular rhythm with clear breathing sounds bilaterally and no edema was noted 02/09/2025 Patient seen and examined. Patient remains in atrial fibrillation with RVR. S he is scheduled for cardioversion today. Heart rate 137, blood pressure 88/61, pulse ox 99% on room air. 02/10/2025 Patient seen and examined. Yesterday she underwent cardioversion with Dr. Casas and remains in sinus rhythm. She was running in the 40s and 50s with systolic blood pressure of 90. Her Lopressor was increased to 75 mg twice daily while here we will plan to decrease this prior to discharge. She denies lightheadedness or dizziness. The physical examination is remarkable for regular rhythm with clear breathing sounds bilaterally and no edema was noted Assessment A-fib with RVR status post electrocardioversion in sinus rhythm Multiple comorbid conditions Plan Continue the current medical regimen including oral anticoagulation, Chad Patient is cleared for discharge from cardiology and will follow-up in the office with Dr. Casas in 1 to 2 weeks. Decrease Lopressor to 50 mg twice daily. Nurse practitioner note has been reviewed, I agree with documented findings and plan of care. Patient was seen and examined. Objective - Vital Signs Vital signs: Vital Signs Temp 97.5 F L 02/10/25 08:15 Pulse 49 L 02/10/25 09:35 Resp 16 02/10/25 08:15 BP 133/72 02/10/25 08:15 Pulse Ox 98 02/10/25 08:15 FiO2 Intake & Output 02/09/25 02/10/25 02/10/25 18:59 06:59 18:59 Intake Total 180 180 Balance 180 180 Weight 108.4 kg Intake: IV 0 Oral 180 180 Other: Voiding Method Toilet Toilet Toilet # Voids 3 2 - Labs CBC & Chem 7: 02/10/25 08:30 02/10/25 08:30 Labs: Abnormal Lab Results - Last 24 Hours (Table) 02/10/25 Range/Units 08:30 BUN 22 H (7-17) mg/dL Glucose 106 H (74-99) mg/dL
--- NOTE | 2025-02-10 15:36 | P.DS ---
Providers Date of admission: 02/05/25 09:32 Expected date of discharge: 02/10/25 Attending physician: Jazmyn Ahmadi MD Consults: 02/05/25 09:30 Consult Physician Routine Consulting Provider: Goyo Casas Consult Reason/Comments: A-fib rvr Do you want consulting provider notified?: Yes Primary care physician: Bessy Chowdhury Hospital Course: Discharge Diagnosis: Paroxysmal atrial fibrillation with RVR Hypertension Hypothyroidism Hospital Course: 74-year-old woman with medical history of paroxysmal atrial fibrillation, hypertension, hyperlipidemia presented for evaluation palpitations. In the emergency room, patient was afebrile, Heart rate 140s, blood pressure 100s over 60s, saturating well on room air. CBC is unremarkable. Basic metabolic panel is unremarkable. Chemistries are unremarkable. Troponin was less than 0.012. Coags are unremarkable. EKG showed atrial fibrillation with RVR, normal axis, did show diffuse ST depressions in leads I, 2, 3, aVF, V4 through V6. Chest x- ray showed no acute cardiopulmonary process. Patient was started on a Cardizem drip after a 10 mg push of Cardizem and the case was discussed with the emergency room physician who requested admission to the hospital for further management of paroxysmal atrial fibrillation. While inpatient, pt went through a cardioversion and reverted back to sinus rhythm and the drip was discontinued. Pt's new and changed medications to be continued include Metoprolol tartrate 50 mg po BID, Eliquis 5mg po BID, aldactone 25 mg po daily. Pt to follow-up with PCP Dr. Chowdhury in 1-2 days and cardiology, Dr. Prieto in 1 week. Patient seen and examined at bedside. Pt stable for discharge. Vital signs reviewed and stable. Physical examination: Vital signs reviewed General: non toxic, no distress, appears at stated age, normal weight Derm: no unusual rashes/lesions, warm Head: atraumatic, normocephalic, symmetric Eyes: EOMI, anicteric sclera, pupils equal round reactive to light ENT: Nose and ears atraumatic Mouth: no lip lesion, mucus membranes moist Cardiovascular: S1S2 reg, no murmur, 1+ pedal edema bilaterally Lungs: CTA bilateral, no rhonchi, no rales, no accessory muscle use Abdominal: soft, nontender to palpation, no guarding Ext: muscle strength 5 out of 5 in all 4 extremities grossly, no gross muscle atrophy Neuro: CN II-XI grossly intact, no gross focal neuro deficits Psych: Alert, oriented to person, place, and time A total of greater than 30 minutes of time were spent preparing this complex discharge summary. Patient was discharged on 02/10/2025 at 930. Shabnam Mendoza DO PGY-1 IM Dictation was produced using [employer] dictation software. please excuse any grammatical, word or spelling errors. I have seen and evaluated the patient today. Discussed with the resident and agree with the residents finding and plan as documented in the resident's note. Changes highlighted in blue font. Patient Condition at Discharge: Stable Plan - Discharge Summary Discharge Rx Participant: No New Discharge Prescriptions: New Metoprolol Tartrate [Lopressor] 50 mg PO BID #90 tab Continue Levothyroxine Sodium [Synthroid] 75 mcg PO DAILY Apixaban [Eliquis] 5 mg PO BID #60 tab Spironolactone [Aldactone] 25 mg PO DAILY #90 tab Discontinued Metoprolol Tartrate 50 mg PO DAILY amLODIPine [Norvasc] 2.5 mg PO DAILY Metoprolol Tartrate 25 mg PO HS Discharge Medication List Levothyroxine Sodium [Synthroid] 75 mcg PO DAILY 04/17/22 [History] Apixaban [Eliquis] 5 mg PO BID #60 tab 04/18/22 [Rx] Spironolactone [Aldactone] 25 mg PO DAILY #90 tab 12/12/23 [Rx] Metoprolol Tartrate [Lopressor] 50 mg PO BID #90 tab 02/10/25 [Rx] Follow up Appointment(s)/Referral(s): William Prieto MD [STAFF PHYSICIAN] - 1 Week (please call and schedule. ) Bessy Chowdhury MD [Primary Care Provider] - 1-2 days (please call and schedule. ) Patient Instructions/Handouts: A-fib (Atrial Fibrillation) (DC), Cardioversion (DC) Activity/Diet/Wound Care/Special Instructions: Please see PCP and cardiology. Discharge Disposition: HOME SELF-CARE
--- NOTE | 2025-02-19 08:29 | PCN ---
PROCEDURE NOTE STUDY PERFORMED: Cardioversion note. INDICATION: Persistent atrial fibrillation with rapid ventricular rate. PROCEDURE NOTE: After obtaining informed consent, cardioversion was performed using 150 joules of synchronized DC current. The patient is adequately anticoagulated. She converted to sinus rhythm following a single shock and she will continue her current medications. MMZEINAB / DANYAN: [id number] /
== END 2025-02-10 12:16 | disposition home or self-care (01) | DRG 310 ==
LOC: EC 07:35 → 3SCARD 09:31 → OBSVTOIN 09:32 → 3SCARD 14:38
PROVIDERS: ADMIT Internal Medicine; ATTEND Internal Medicine
PROC: 5A2204Z Restoration of Cardiac Rhythm, Single (ICD-10-PCS; principal; 2025-02-08)
DX: I48.0 Paroxysmal atrial fibrillation (principal); E03.9 Hypothyroidism, unspecified; I10 Essential (primary) hypertension; G47.33 Obstructive sleep apnea (adult) (pediatric); F41.0 Panic disorder [episodic paroxysmal anxiety]; Z79.01 Long term (current) use of anticoagulants; Z79.890 Hormone replacement therapy; Z79.899 Other long term (current) drug therapy; Z82.49 Family history of ischemic heart disease and other diseases of the circulatory system; Z87.441 Personal history of nephrotic syndrome; Z87.891 Personal history of nicotine dependence
CPT/HCPCS: 36415; 71046; 80048; 80053; 83735; 84443; 84484; 85025; 85610; 85730; 92960; 93005; 96374; 99291